=== PATIENT | female | born 1950 | race Caucasian/White ===

== ENCOUNTER 2020-06-01 07:55 | Outpatient (CLI) | payer MEDICARE, OTHER, SELFPAY ==
--- NOTE | ~2020-06-01 | MMUS_ITS ---
EXAMINATION: MM diagnostic rashida BI w mouna, US breast RT limited HISTORY: Palpable lump in the upper inner quadrant of the right breast TECHNIQUE: Craniocaudal, mediolateral, and mediolateral oblique 3-D tomosynthesis images of the right breast were performed and synthetic 2-D images were generated. CAD analysis was submitted and interp reted. High resolution limited right breast ultrasound was performed. COMPARISON: 05/22/2019, 05/14/2018, 05/09/2017 BREAST PARENCHYMAL COMPOSITION: The breasts are almost entirely fatty. FINDINGS: MAMMOGRAPHIC FINDINGS: There is no evidence of suspicious mass, calcification, or architectural distortion to suggest malig maria elena. There has been no suspicious interval change. No mammographic correlate is identified for the reported palpable abnormality of the right breast. ULTRASOUND: There is an approximately 1.3 x 0.7 cm oval, circumscribed, parallel, hyperechoic and isoechoic area at the 1:00 location 10 cm from the nipple corresponding to the palpable abnormality of concern. IMPRESSION: 1. Right breast mass with imaging features suggestive of small hematoma corresponding to the palpable abnormality of concern. 2. Recommend targeted ultrasound in 4-6 weeks to evaluate for interval change/resolution. If persiste nt, ultrasound guided biopsy would be recommended. BI-RADS category 4, suspicious findings. Reviewed, dictated and finalized at location A. IMPRESSION: 1. Right breast mass with imaging features suggestive of small hematoma corresp onding to the palpable abnormality of concern. 2. Recommend targeted ultrasound in 4-6 weeks to evaluate for interval change/r esolution. If persistent, ultrasound guided biopsy would be recommended. BI-RADS category 4, suspicious findings.
== END 2020-06-01 07:56 | disposition home or self-care (01) ==
PROVIDERS: PCP Nurse Practitioner Family; Visit Provider Nurse Practitioner Family
DX: R92.8 Other abnormal and inconclusive findings on diagnostic imaging of breast (principal)
CPT/HCPCS: 76642; 77062; 77066; G0279

== ENCOUNTER 2020-07-06 08:24 | Outpatient (CLI) | payer MEDICARE, OTHER, SELFPAY ==
--- NOTE | ~2020-07-06 | US_ITS ---
US breast RT limited 07/06/2020 09:24 Indication: Palpable right breast lump Procedure: High-resolution ultrasound of the right breast Comparison: Comparison to multiple prior studies sequentially, with oldest reviewed study dated 06/01. Findings: Unchanged complex hyperechoic mass of the right breast at 1:00, 10 cm from the nipple measu ring 17 x 7 x 13 mm. No significant posterior features or internal vascularity. Impression: 1: Stable complex predominantly hyperechoic right breast mass at 1:00, 10 cm from the nipple. BI-RADS CATEGORY 4-SUSPICIOUS ABNORMALITY RECOMMENDATION: Ultrasound-guided right breast biopsy recommended. Reviewed, dictated and finalized at location A. RNATIVE DISPUTE RESOLUTION MEDIATOR Impression: 1: Stable complex predominantly hyperechoic right breast mass at 1:00, 10 cm fr om the nipple. BI-RADS CATEGORY 4-SUSPICIOUS ABNORMALITY RECOMMENDATION: Ultrasound-guided right breast biopsy recommended.
== END 2020-07-06 08:25 | disposition home or self-care (01) ==
PROVIDERS: PCP Nurse Practitioner Family; Visit Provider Nurse Practitioner Family
DX: N63.10 Unspecified lump in the right breast, unspecified quadrant (principal); R92.8 Other abnormal and inconclusive findings on diagnostic imaging of breast
CPT/HCPCS: 76642

== ENCOUNTER → 2020-09-23 10:15 | Outpatient (CLI) | payer MEDICARE, OTHER, SELFPAY ==
--- NOTE | ~2020-09-23 | DEXA_ITS ---
Bone Density Report Name: Negrita Ayon Age: 70 Sex: Female Ethnicity: White Date of : 1950 Indication: osteopenia; postmenopausal Referring Provider: Minerva Lim Study: Bone densitometry was performed. Exam Date: September 23, 2020 Accession number: [id number] Bone Density: Region BMD T-score Z-score Classification AP Spine (L1, L2, L3) 0.842 -1.6 0.6 Osteopenia Femoral Neck (Left) 0.827 -0.2 1.7 Normal Total Hip (Left) 0.964 0.2 1.8 Normal Femoral Neck (Right) 0.748 -0.9 1.0 Normal Total Hip (Right) 0.930 -0.1 1.5 Normal Total Hip Mean 0.947 0.1 1.7 Normal World Health Organization criteria for BMD impression classify patients as: Normal (T-score at or above -1.0), Osteopenia (T-score between -1.0 and -2.5), or Osteoporosis (T-score at or below -2.5). 10-year Fracture Risk(1): Major Osteoporotic Fracture 8.6% Hip Fracture 0.9% Reported Risk Factors: [place] (), Neck BMD=0.748, BMI=32.0 (1) FRAX(R) Version 3.08. Fracture probability calculated for an untreated patient. Fracture probability may be lower if the patient has received treatment. Previous Exams: Region Exam Age BMD T-score BMD Change BMD Change Date g/cm2 vs Baseline vs Previous AP Spine(L1, L2, L3) 09/23/2020 70 0.842 -1.6 0.052* -0.008 06/04/2018 67 0.851 -1.5 0.060* 0.010 04/17/2012 61 0.840 -1.6 0.050* -0.004 04/13/2010 59 0.844 -1.6 0.053* 0.025* 04/10/2009 58 0.819 -1.8 0.028* -0.018 03/19/2008 57 0.837 -1.6 0.047* -0.017 03/16/2007 56 0.854 -1.5 0.064* 0.064* 03/10/2006 55 0.791 -2.1 Total Hip(Left) 09/23/2020 70 0.964 0.2 -0.091* 0.001 06/04/2018 67 0.962 0.2 -0.092* -0.047* 04/17/2012 61 1.009 0.5 -0.045* 0.007 04/13/2010 59 1.002 0.5 -0.053* 0.001 04/10/2009 58 1.001 0.5 -0.054* 0.015 03/19/2008 57 0.986 0.4 -0.069* -0.028* 03/16/2007 56 1.013 0.6 -0.041* -0.041* 03/10/2006 55 1.054 0.9 Total Hip(Right) 09/23/2020 70 0.930 -0.1 -0.088* -0.017 06/04/2018 67 0.947 0.0 -0.071* -0.021 04/17/2012 61 0.967 0.2 -0.051* -0.118* 04/13/2010 59 1.086 1.2 0.068* 0.102* 04/10/2009 58 0.984 0.3 -0.034* 0.026 03/19/2008 57 0.958 0.1 -0.060* -0.072* 03/16/2007 56 1.031 0.7 0.013
== END ==
PROVIDERS: PCP Nurse Practitioner Family; Visit Provider Nurse Practitioner Family
DX: Z78.0 Asymptomatic menopausal state (principal)
CPT/HCPCS: 77080

== ENCOUNTER → 2022-09-27 10:14 | Outpatient (CLI) | payer MEDICARE, OTHER, SELFPAY ==
--- NOTE | ~2022-09-27 | DEXA_ITS ---
Bone Density Report Name: JOSHUA KENNY Age: 72 Sex: Female Ethnicity: White Date of : 1950 Indication: osteopenia; height loss; postmenopausal Referring Provider: Minerva Lim Study: Bone densitometry was performed. Exam Date: September 27, 2022 Accession number: [id number] Bone Density: Region BMD T-score Z-score Classification AP Spine (L1, L2, L3) 0.816 -1.8 0.5 Osteopenia Femoral Neck (Left) 0.783 -0.6 1.4 Normal Total Hip (Left) 0.946 0.0 1.8 Normal Femoral Neck (Right) 0.729 -1.1 1.0 Osteopenia Total Hip (Right) 0.981 0.3 2.1 Normal Total Hip Mean 0.964 0.2 2.0 Normal World Health Organization criteria for BMD impression classify patients as: Normal (T-score at or above -1.0), Osteopenia (T-score between -1.0 and -2.5), or Osteoporosis (T-score at or below -2.5). 10-year Fracture Risk(1): Major Osteoporotic Fracture 9.4% Hip Fracture 1.4% Reported Risk Factors: [place] (), Neck BMD=0.729, BMI=31.4 (1) FRAX(R) Version 3.08. Fracture probability calculated for an untreated patient. Fracture probability may be lower if the patient has received treatment. Previous Exams: Region Exam Age BMD T-score BMD Change BMD Change Date g/cm2 vs Baseline vs Previous AP Spine(L1, L2, L3) 09/27/2022 72 0.816 -1.8 0.026* -0.026* 09/23/2020 70 0.842 -1.6 0.052* -0.008 06/04/2018 67 0.851 -1.5 0.060* 0.010 04/17/2012 61 0.840 -1.6 0.050* -0.004 04/13/2010 59 0.844 -1.6 0.053* 0.025* 04/10/2009 58 0.819 -1.8 0.028* -0.018 03/19/2008 57 0.837 -1.6 0.047* -0.017 03/16/2007 56 0.854 -1.5 0.064* 0.064* 03/10/2006 55 0.791 -2.1 Total Hip(Left) 09/27/2022 72 0.946 0.0 -0.108* -0.017 09/23/2020 70 0.964 0.2 -0.091* 0.001 06/04/2018 67 0.962 0.2 -0.092* -0.047* 04/17/2012 61 1.009 0.5 -0.045* 0.007 04/13/2010 59 1.002 0.5 -0.053* 0.001 04/10/2009 58 1.001 0.5 -0.054* 0.015 03/19/2008 57 0.986 0.4 -0.069* -0.028* 03/16/2007 56 1.013 0.6 -0.041* -0.041* 03/10/2006 55 1.054 0.9 Total Hip(Right) 09/27/2022 72 0.981 0.3 -0.037* 0.052* 09/23/2020 70 0.930 -0.1 -0.088* -0.017 06/04/2018 67 0.947 0.0 -0.071* -0.021 04/17/2012 61 0.967 0.2 -0.051* -0.118* 04/13/2010 59 1.663
== END ==
PROVIDERS: PCP Nurse Practitioner Family; Visit Provider Nurse Practitioner Family
DX: Z78.0 Asymptomatic menopausal state (principal)
CPT/HCPCS: 77080

== ENCOUNTER 2023-03-03 16:57 | Emergency (ER) | payer MEDICARE, OTHER, SELFPAY ==
[2023-03-03 17:10] VITALS: BP 146/74; PULSE 70; RESP 18; TEMP 37; O2SAT 100
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
== END 2023-03-03 17:49 | disposition home or self-care (01) ==
PROVIDERS: Emergency Provider Nurse Practitioner Family; PCP Nurse Practitioner Family
DX: L03.311 Cellulitis of abdominal wall (principal); T21.02XA Burn of unspecified degree of abdominal wall, initial encounter; I10 Essential (primary) hypertension; E78.5 Hyperlipidemia, unspecified; E03.9 Hypothyroidism, unspecified; Z87.891 Personal history of nicotine dependence; T31.0 Burns involving less than 10% of body surface; X11.8XXA Contact with other hot tap-water, initial encounter
CPT/HCPCS: 99213; G0463

== ENCOUNTER 2024-07-22 00:03 | Day surgery (SDC) | payer MEDICARE, OTHER, SELFPAY ==
[2024-07-10 10:21] VITALS: BMI 28.5
[2024-07-22 08:00] VITALS: BP 127/80; PULSE 74; RESP 18; TEMP 36.2; O2SAT 95
[2024-07-22] MEDS: LACTATED RINGERS 1,000 ML 150 ML IV CONT (08:10)
--- NOTE | 2024-07-22 08:10 | P.PNAN_ITS ---
Anes - Initial Pre Proc Eval Procedure: Operation Date: 07/22/24 09:30 Proposed Procedures p Colonoscopy - George Olsen MD Date/Time: 07/22/24 08:10 Surgeon: George Olsen MD Pre Op Diagnosis: fecal abnormalities Patient Data Age: 73 Gender: F Height: 1.63 m Weight: 75.1 kg Last Vital Signs Temp 36.2 C L 07/22/24 08:00 Pulse 74 07/22/24 08:00 Resp 18 07/22/24 08:00 BP 127/80 07/22/24 08:00 Pulse Ox 95 07/22/24 08:00 O2 Del Method Room Air 07/22/24 08:00 Allergies Allergy/AdvReac Type Severity Reaction Status Date / Time azithromycin Allergy Mild thrush Verified 07/22/24 07:59 Sulfa (Sulfonamide Allergy Mild hives Verified 07/22/24 07:59 Antibiotics) sulfanilamide Allergy Mild hives Verified 07/22/24 07:59 Home Medications Medication Instructions Recorded Confirmed Type calcium carbonate 500 mg PO DAILY 11/14/19 07/22/24 History cholecalciferol (vitamin D3) 50 2,000 unit PO DAILY 11/14/19 07/22/24 History mcg (2,000 unit) chewable tablet lutein 20 mg tablet 20 mg PO DAILY 11/14/19 07/22/24 History multivitamin 1 tablet PO DAILY 11/14/19 07/22/24 History vitamin E (dl, acetate) 180 mg 400 unit PO DAILY 11/14/19 07/22/24 History (400 unit) capsule ferrous sulfate 325 mg (65 mg 325 mg PO WEEKLY 05/24/21 07/22/24 History iron) capsule,extended release alprazolam 0.25 mg tablet 0.25 mg PO DAILY PRN anxiety #5 06/06/22 07/22/24 Rx tabs losartan 100 See Rx Instructions .Route 09/28/23 07/22/24 Rx mg-hydrochlorothiazide 12.5 mg .COMPLEX #90 tabs tablet amlodipine 5 mg tablet 5 mg PO DAILY #90 tabs 03/13/24 07/22/24 Rx fluoxetine 20 mg capsule 20 mg PO DAILY #90 caps 04/08/24 07/22/24 Rx levothyroxine 50 mcg tablet 50 mcg PO DAILY #90 tabs 04/08/24 07/22/24 Rx sodium,potassium,mag sulfates 17.5 See Rx Instructions PO .COMPLEX 06/26/24 07/22/24 Rx gram-3.13 gram-1.6 gram oral soln #354 mL (Suprep Bowel Prep Kit) Patient hx anesthesia problems: none Family hx anesthesia problems: none Results Review: All pre-operative results and documents have been reviewed as part of the pre- operative evaluation. [facility] Past Medical History Medical History Anxiety Essential (primary) hypertension H/O fracture of rib (~02/2016) Hyperlipidemia Hypothyroid Osteopenia Dexa - 09/23/20 Surgical History Surgical History History of cataract extraction (~2013) History of toe surgery (~2014) hammer toe repair Family History Family History Other Hypertension Social History Social History Social History: Caffeine- Smoking packs per day: 0.5 Smoking cigarettes per day: 10.0 Smoking status: Former smoker Tobacco type: cigarettes Second hand tobacco smoke exposure: No Alcohol intake: current Alcohol use details: occasionally Substance use: never Substance use type: does not use Lack of Transportation: No Lack of Food: Never True Current Housing: I Have Housing Concerned About Future Housing: No Difficulty Paying Gas/Electric Bills: No Difficulty Paying for Meds: No Currently Unemployed: No Education: High School Diploma/GED Difficulty w/ Childcare or Family Care: No Living arrangements: alone Occupation/Education: retired Gender identity (if verbalized by the patient): Female Spiritual care concerns: No Agree to blood products: Yes Anes - Eval Final PreProcedure Day of Procedure 07/22/24 08:10 Patient weight: overweight Heart: regular rate and rhythm Lungs: clear to auscultation Airway: Mallampati scale class II Neurological: alert and oriented Last oral intake: >/= 8 hours ASA classification: III Emergent: no Anesthetic plan: proceed Anesthesia type and monitoring: general GIVS and standard monitoring Results Review: All pre-operative results and documents have been reviewed as part of the pre- operative evaluation. Informed Consent: The patient's anesthetic plan and its attendant risks and benefits were discussed with the patient/family/POA. Questions were solicited and answers provided to the satisfaction of the patient/family/POA.
--- NOTE | 2024-07-22 09:00 | PM.IMHP ---
H&P: HPI History of Present Illness Date/Time: 07/22/24 09:00 Chief Complaint: Screening colonoscopy Narrative: this is the 2nd colonoscopy for this Patient. she is referred for a finding of positive Cologuard. Her 1st colonoscopy was 12 years ago, reportedly normal. Review of Systems Review of Systems: All systems reviewed & are unremarkable except as noted in HPI and below PMFSH Past Medical History Medical History Anxiety Essential (primary) hypertension H/O fracture of rib (~02/2016) Hyperlipidemia Hypothyroid Osteopenia Dexa - 09/23/20 Surgical History Surgical History History of cataract extraction (~2013) History of toe surgery (~2014) hammer toe repair Family History Family History Other Hypertension Social History Social History Social History: Caffeine- Smoking packs per day: 0.5 Smoking cigarettes per day: 10.0 Smoking status: Former smoker Tobacco type: cigarettes Second hand tobacco smoke exposure: No Alcohol intake: current Alcohol use details: occasionally Substance use: never Substance use type: does not use Lack of Transportation: No Lack of Food: Never True Current Housing: I Have Housing Concerned About Future Housing: No Difficulty Paying Gas/Electric Bills: No Difficulty Paying for Meds: No Currently Unemployed: No Education: High School Diploma/GED Difficulty w/ Childcare or Family Care: No Living arrangements: alone Occupation/Education: retired Gender identity (if verbalized by the patient): Female Spiritual care concerns: No Agree to blood products: Yes Meds Home Medications and Allergies Home Medications Medication Instructions Recorded Confirmed Type calcium carbonate 500 mg PO DAILY 11/14/19 07/22/24 History cholecalciferol (vitamin D3) 50 2,000 unit PO DAILY 11/14/19 07/22/24 History mcg (2,000 unit) chewable tablet lutein 20 mg tablet 20 mg PO DAILY 11/14/19 07/22/24 History multivitamin 1 tablet PO DAILY 11/14/19 07/22/24 History vitamin E (dl, acetate) 180 mg 400 unit PO DAILY 11/14/19 07/22/24 History (400 unit) capsule ferrous sulfate 325 mg (65 mg 325 mg PO WEEKLY 05/24/21 07/22/24 History iron) capsule,extended release alprazolam 0.25 mg tablet 0.25 mg PO DAILY PRN anxiety #5 06/06/22 07/22/24 Rx tabs losartan 100 See Rx Instructions .Route 09/28/23 07/22/24 Rx mg-hydrochlorothiazide 12.5 mg .COMPLEX #90 tabs tablet amlodipine 5 mg tablet 5 mg PO DAILY #90 tabs 03/13/24 07/22/24 Rx fluoxetine 20 mg capsule 20 mg PO DAILY #90 caps 04/08/24 07/22/24 Rx levothyroxine 50 mcg tablet 50 mcg PO DAILY #90 tabs 04/08/24 07/22/24 Rx sodium,potassium,mag sulfates 17.5 See Rx Instructions PO .COMPLEX 06/26/24 07/22/24 Rx gram-3.13 gram-1.6 gram oral soln #354 mL (Suprep Bowel Prep Kit) Allergies Allergy/AdvReac Type Severity Reaction Status Date / Time azithromycin Allergy Mild thrush Verified 07/22/24 07:59 Sulfa (Sulfonamide Allergy Mild hives Verified 07/22/24 07:59 Antibiotics) sulfanilamide Allergy Mild hives Verified 07/22/24 07:59 Vital Signs Vital Signs - 24 hr 07/22/24 08:00 Temperature 97.1 F L Pulse Rate 74 Respiratory Rate 18 Blood Pressure 127/80 Pulse Oximetry 95 Oxygen Delivery Room Air Exam Const: General: cooperative and healthy appearing Resp: Effort & Inspection: normal respiratory effort and able to speak in complete sentences Auscultation: clear to auscultation bilaterally Cardio: Rate: regular rate Rhythm: regular rhythm GI: Inspection: normal to inspection GI Palp: No No hepatosplenomegaly present Auscultation: normal bowel sounds Rectal Exam: deferred Skin: General skin exam: normal color Psych: Appearance: grossly normal Mental Status: mental status grossly normal Assessment and Plan Assessment and plan (1) Positive colorectal cancer screening using Cologuard test: Code(s): R19.5 - Other fecal abnormalities Status: Acute Assessment and Plan: The patient is deemed a good candidate for the procedure. Consent signed. Will proceed.
[2024-07-22 09:29] VITALS: BP 127/66; PULSE 55; RESP 17; O2SAT 100
[2024-07-22 09:39] VITALS: BP 144/76; PULSE 58; RESP 18; O2SAT 100
[2024-07-22 09:49] VITALS: BP 157/80; PULSE 50; RESP 21; O2SAT 100
== END 2024-07-22 09:59 | disposition home or self-care (01) ==
PROVIDERS: PCP Nurse Practitioner Family; Visit Provider Internal Medicine Gastroenterology
PROC: 0DJD8ZZ Inspection of Lower Intestinal Tract, Via Natural or Artificial Opening Endoscopic (ICD-10-PCS; CPT 45378; principal; 2024-07-22 09:30)
DX: R19.5 Other fecal abnormalities (principal); K57.30 Diverticulosis of large intestine without perforation or abscess without bleeding; E78.5 Hyperlipidemia, unspecified; E03.9 Hypothyroidism, unspecified; I10 Essential (primary) hypertension; F41.9 Anxiety disorder, unspecified; Z87.891 Personal history of nicotine dependence
CPT/HCPCS: 45378; J2704; J7120

== ENCOUNTER 2024-10-14 10:28 | Outpatient (CLI) | payer MEDICARE, OTHER, SELFPAY ==
--- NOTE | ~2024-10-14 | DEXA_ITS ---
Bone Density Report Name: JOSHUA KENNY Age: 74 Sex: Female Ethnicity: White Date of : 1950 Indication: postmenopausal; screening for osteoporosis; height loss; Referring Provider: MERLINE HAWKINS Study: Bone densitometry was performed. Exam Date: October 14, 2024 Accession number: [id number] Bone Density: Region BMD T-score Z-score Classification AP Spine(L1, L2, L3) 0.846 -1.6 0.8 Osteopenia Femoral Neck (Left) 0.730 -1.1 1.1 Osteopenia Total Hip (Left) 0.957 0.1 2.0 Normal Femoral Neck (Right) 0.702 -1.3 0.8 Osteopenia Total Hip (Right) 0.907 -0.3 1.6 Normal Femoral Neck Mean 0.716 -1.2 0.9 Osteopenia Total Hip Mean 0.932 -0.1 1.8 Normal World Health Organization criteria for BMD impression classify patients as: Normal (T-score at or above -1.0), Osteopenia (T-score between -1.0 and -2.5), or Osteoporosis (T-score at or below -2.5). 10-year Fracture Risk(1): Major Osteoporotic Fracture 11% Hip Fracture 2.1% Reported Risk Factors: [place] (), Neck BMD=0.702, BMI=27.8 (1) FRAX(R) Version 3.08. Fracture probability calculated for an untreated patient. Fracture probability may be lower if the patient has received treatment. Clinical Information Provided by Patient: Has used the following medications: Vitamin D, Calcium Patient maximum height was 66 Menopause Age: 48 No regular weight bearing exercise Onset of menses at age 10 Number of children 1 Impression: The patient has low bone mass, based on the Total Spine T-score. Discussion: BONE DENSITY IS LOW AT ONE OR MORE SKELETAL SITES. This patient's lowest T-score is low at one or more skeletal sites. It meets the World Health Organization's (WHO) criteria for ?low bone mass? (T-score between -1.0 and -2.5). The patient's 10-year risk of fracture as calculated by FRAX is less than the threshold where pharmacological therapy is recommended by the National Osteoporosis Foundation (NOF). However, all treatment decisions require clinical judgment and consideration of individual patient factors, including patient preferences, comorbidities, previous drug use, risk factors not captured in the FRAX model (e.g., frailty, falls, vitamin D deficiency, increased bone turnover, interval significant decline in bone density) and possible under or overestimation of fracture risk by FRAX. The patient should follow a healthful lifestyle (good nutrition with adequate calcium and vitamin D, and appropriate weight-bearing exercise). Follow-Up: Consider repeating this study in 2 to 3 years to reassess this patient's status, or sooner if there is some new clinical indication. Reported by: JANN on 10/14/2024 10:49:00 AM. Reviewed, dictated and finalized at location A.
--- OUTSIDE RECORDS SUMMARY | 2024-10-14 11:22 | XMS_ITS | Clinical Summary ---
Author Organization [facility] Address [address] [place] [address] Care Team Providers Care Seating And Mobility Technologist Name Role Phone Unavailable Primary Care Provider Unavailabl e Source Comments [facility],non-owned Affiliates and Associated Physician Practices is amultiple site organization consisting of ambulatory clinics and hospital sitesin [place], [place], [place] and [place]. This disclosure is being madepursuant to the Care Everywhere program and may not contain all information available regarding this patient. Last updated 18.[facility] [employer] Social History Tobacco Use Types Packs/Day Years Used Date Smoking Tobacco: Never Assessed Sex and Gender Information Value Date Recorded Sex Assigned at Not on file Gender Identity Not on file Sexual Orientation Not on file Plan of Treatment Health Maintenance Due Date Last Done Comments BONE DENSITY TESTING 1950 MEDICARE AWV 12 MONTHS 1950 HEPATITIS C SCREENING 08/16/1966 DTAP/TDAP/TD VACCINES (1 - Tdap) 1967 PNEUMOCOCCAL VACCINE 50+ (1 of 1 - PCV) 1998 ZOSTER VACCINE (1 of 2) 1998 Respiratory Syncytial Virus (RSV) Vaccine Pt: or over 60 yrs (1 - 1-dose 75+ series) 2023 COVID-19 VACCINE ( - 2023-2 5 season) 2024 INFLUENZA VACCINE (#1) 2024 DEPRESSION SCREENING 09/04/2024 HEPATITIS B VACCINE Aged Out No longe r eligible based on patient's age to complete this topic HIB VACCINE Aged Out No longer eligi ble based on patient's age to complete this topic HPV VACCINE Aged Out No longer eligi ble based on patient's age to complete this topic MENINGOCOCCAL (Group B) VACCINE Aged Out No longer eligible based on patient's age to complete this topic MENINGOCOCCAL VACCINE Aged Out No malgorzata flavia eligible based on patient's age to complete this topic
--- OUTSIDE RECORDS SUMMARY | 2024-10-14 11:22 | XMS_ITS | Encounter Summary ---
Author Organization [facility] Address [address] [place] [address] Phone Care Team Providers Care Salesperson Automobiles Name Role Phone Minerva Lim APRN, AUTOMOTIVE GENERATOR REPAIRER Primary Care Provider U navailable Reason for Referral * Radiology Services (Routine) - Closed Specialty Diagnoses / Procedures Referred By Asia t Referred To Contact Radiology Diagnoses Abnormal mammogram Procedures [facility] BREAST LIMITED RT Warner Morataya MD [address] [id number] Phone: tel: fax: Referral ID Status Reason Start Date Expiration Date Visits Re quested Visits Authorized [id number] Closed 05/14/2024 1 1 * Radiology Services (Routine) - Closed Specialty Diagnoses / Procedures Referred By Asia ferreira Referred To Contact Radiology Diagnoses Abnormal mammogram Procedures [facility] DIAG RIGHT UNILATERAL DIGITAL W CAD W Warner Mcelroy MD [address] [address] Phone: tel: fax: Referral ID Status Reason Start Date Expiration Date Visits Re quested Visits Authorized [id number] Closed 05/14/2024 1 1 Encounter Details Date Type Department Care Team (Late st Contact Info) Description 05/14/2024 Transcribe Orders [facility] Mammography [address] [place] [address] Warner Morataya MD [address] [place] [phone] Abnormal mammogram (Primary Dx) Social History Tobacco Use Types Packs/Day Years Used Date Smoking Tobacco: Former Cigarettes Q uit: 1997 Smokeless Tobacco: Never Alcohol Use Standard Drinks/Week Comments Yes 0 (1 standard drink = 0.6 oz pur e alcohol) occassionally Comments No Sex and Gender Information Value Date Recorded Sex Assigned at Not on file Legal Sex Female 2:32 PM CDT Gender Identity Not on file Sexual Orientation Not on file documented as of this encounter Plan of Treatment Not on file documented as of this encounter Results * CA[facility] US BREAST LIMITED RT (07/01/2024 10:33 AM CDT) Anatomical Region Laterality Modality breast Right Ultrasound 07/01/2024 9:41 AM CDT Narrative 07/03/2024 8:41 AM CDT - [facility] DIAG RIGHT UNILATERAL DIGITAL W CAD W [facility] - CAITLIN US BREAST LIMITED RT UNILATERAL RIGHT DIGITAL DIAGNOSTIC MAMMOGRAM 3D/2D WITH CAD WITH MEDIOLATERAL OBLIQUE CRANIOCAUDAL AND RIGHT ULTRASOUND: 07/01/2024 The study was acquired using digital technology and interpreted from soft copy. Current study was also evaluated with ICAD version 7.2. 2D digital mammographic views, as well as 3D digital tomosynthesis were performed in the CC and MLO projections. CLINICAL: Diagnostic study. Patient returns for a 6 month follow-up right breast. No personal history of cancer. Paternal aunt had breast cancer. COMPARISONS: Comparison is made to exams dated: 07/19/2023, 12/28/2023, and [facility] [facility]. BREAST TISSUE:There are scattered areas of fibroglandular density. FINDINGS: BILATERAL DIAGNOSTIC MAMMOGRAM: There is a biopsy clip in the right breast. No significant masses or calcifications are seen in either breast on the mammogram. Further evaluation was obtained with sonography. TARGETED RIGHT BREAST ULTRASOUND: At the 1 o'clock position of the right breast, 12 cm from the nipple, an oval heterogeneous focus is again seen. This was previously biopsied. This measures 1.8 x 1.7 x 0.8 cm, previously 2.0 x 1.8 x 1.0 cm. Previous biopsy showed fat necrosis. This will continue to be classified as probably benign. IMPRESSION: OVERALL STUDY BIRADS: CATEGORY 3: PROBABLY BENIGN Lesion in the right breast continue to be classified as probably benign. A follow-up mammogram and an ultrasound in 6 months are recommended to demonstrate stability. The results and recommendations were discussed with the patient. Electronically signed by: Ary Singh M.D. ll/:07/02/2024 15:13:25 Survey Interviewer(s): Violet Lee, RT(R)(M), [facility]; JAMIE Ramirez, [facility] letter sent: Birad 3 Followup Reading location: [facility] OVERALL STUDY BIRADS: Category 3: Probably Benign Procedure Note Ary Singh MD - 07/03/2024 - [facility] DIAG RIGHT UNILATERAL DIGITAL W CAD W [place] - CAITLIN US BREAST LIMITED RT UNILATERAL RIGHT DIGITAL DIAGNOSTIC MAMMOGRAM 3D/2D WITH CAD WITH MEDIOLATERAL OBLIQUE CRANIOCAUDAL AND RIGHT ULTRASOUND: 07/01/2024 The study was acquired using digital technology and interpreted from soft copy. Current study was also evaluated with ICAD version 7.2. 2D digital mammographic views, as well as 3D digital tomosynthesis were performed in the CC and MLO projections. CLINICAL: Diagnostic study. Patient returns for a 6 month follow-up right breast. No personal history of cancer. Paternal aunt had breast cancer. COMPARISONS: Comparison is made to exams dated: 07/19/2023, 12/28/2023, and 06/27/2022 [facility]. BREAST TISSUE:There are scattered areas of fibroglandular density. FINDINGS: BILATERAL DIAGNOSTIC MAMMOGRAM: There is a biopsy clip in the right breast. No significant masses or calcifications are seen in either breast on the mammogram. Further evaluation was obtained with sonography. TARGETED RIGHT BREAST ULTRASOUND: At the 1 o'clock position of the right breast, 12 cm from the nipple, an oval heterogeneous focus is again seen. This was previously biopsied. This measures 1.8 x 1.7 x 0.8 cm, previously 2.0 x 1.8 x 1.0 cm. Previous biopsy showed fat necrosis. This will continue to be classified as probably benign. IMPRESSION: OVERALL STUDY BIRADS: CATEGORY 3: PROBABLY BENIGN Lesion in the right breast continue to be classified as probably benign. A follow-up mammogram and an ultrasound in 6 months are recommended to demonstrate stability. The results and recommendations were discussed with the patient. Electronically signed by: Ary Singh M.D. ll/:07/02/2024 15:13:25 Survey Interviewer(s): Violet Lee, RT(R)(M), [facility]; JAMIE Ramirez, [facility] letter sent: Birad 3 Followup Reading location: [facility] OVERALL STUDY BIRADS: Category 3: Probably Benign us Warner Morataya MD IMG MAMMO ORDERABLES Final Result * [facility] DIAG RIGHT UNILATERAL DIGITAL W CAD W [place] (07/01/2024 10:07 AM CDT) Anatomical Region Laterality Modality breast Right Mammography 07/01/2024 9:41 AM CDT Narrative 07/03/2024 8:41 AM CDT - [facility] DIAG RIGHT UNILATERAL DIGITAL W CAD W [place] - CAITLIN US BREAST LIMITED RT UNILATERAL RIGHT DIGITAL DIAGNOSTIC MAMMOGRAM 3D/2D WITH CAD WITH MEDIOLATERAL OBLIQUE CRANIOCAUDAL AND RIGHT ULTRASOUND: 07/01/2024 The study was acquired using digital technology and interpreted from soft copy. Current study was also evaluated with ICAD version 7.2. 2D digital mammographic views, as well as 3D digital tomosynthesis were performed in the CC and MLO projections. CLINICAL: Diagnostic study. Patient returns for a 6 month follow-up right breast. No personal history of cancer. Paternal aunt had breast cancer. COMPARISONS: Comparison is made to exams dated: 07/19/2023, 12/28/2023, and 06/27/2022 [facility]. BREAST TISSUE:There are scattered areas of fibroglandular density. FINDINGS: BILATERAL DIAGNOSTIC MAMMOGRAM: There is a biopsy clip in the right breast. No significant masses or calcifications are seen in either breast on the mammogram. Further evaluation was obtained with sonography. TARGETED RIGHT BREAST ULTRASOUND: At the 1 o'clock position of the right breast, 12 cm from the nipple, an oval heterogeneous focus is again seen. This was previously biopsied. This measures 1.8 x 1.7 x 0.8 cm, previously 2.0 x 1.8 x 1.0 cm. Previous biopsy showed fat necrosis. This will continue to be classified as probably benign. IMPRESSION: OVERALL STUDY BIRADS: CATEGORY 3: PROBABLY BENIGN Lesion in the right breast continue to be classified as probably benign. A follow-up mammogram and an ultrasound in 6 months are recommended to demonstrate stability. The results and recommendations were discussed with the patient. Electronically signed by: Ary Singh M.D. ll/:07/02/2024 15:13:25 Survey Interviewer(s): Violet Lee, RT(R)(M), [facility]; JAMIE Ramirez, [facility] letter sent: Birad 3 Followup Reading location: [facility] OVERALL STUDY BIRADS: Category 3: Probably Benign Procedure Note Ary Singh MD - 07/03/2024 - [facility] DIAG RIGHT UNILATERAL DIGITAL W CAD W [place] - CA[facility]LIN US BREAST LIMITED RT UNILATERAL RIGHT DIGITAL DIAGNOSTIC MAMMOGRAM 3D/2D WITH CAD WITH MEDIOLATERAL OBLIQUE CRANIOCAUDAL AND RIGHT ULTRASOUND: 07/01/2024 The study was acquired using digital technology and interpreted from soft copy. Current study was also evaluated with ICAD version 7.2. 2D digital mammographic views, as well as 3D digital tomosynthesis were performed in the CC and MLO projections. CLINICAL: Diagnostic study. Patient returns for a 6 month follow-up right breast. No personal history of cancer. Paternal aunt had breast cancer. COMPARISONS: Comparison is made to exams dated: 07/19/2023, 12/28/2023, and 06/27/2022 [facility]. BREAST TISSUE:There are scattered areas of fibroglandular density. FINDINGS: BILATERAL DIAGNOSTIC MAMMOGRAM: There is a biopsy clip in the right breast. No significant masses or calcifications are seen in either breast on the mammogram. Further evaluation was obtained with sonography. TARGETED RIGHT BREAST ULTRASOUND: At the 1 o'clock position of the right breast, 12 cm from the nipple, an oval heterogeneous focus is again seen. This was previously biopsied. This measures 1.8 x 1.7 x 0.8 cm, previously 2.0 x 1.8 x 1.0 cm. Previous biopsy showed fat necrosis. This will continue to be classified as probably benign. IMPRESSION: OVERALL STUDY BIRADS: CATEGORY 3: PROBABLY BENIGN Lesion in the right breast continue to be classified as probably benign. A follow-up mammogram and an ultrasound in 6 months are recommended to demonstrate stability. The results and recommendations were discussed with the patient. Electronically signed by: Ary Singh M.D. ll/:07/02/2024 15:13:25 Survey Interviewer(s): RT Katelin(R)(M), [facility]; Park Porras RDMS OBGYN, [facility] letter sent: Birad 3 Followup Reading location: [facility] OVERALL STUDY BIRADS: Category 3: Probably Benign Warner Morataya MD IMG MAMMO ORDERABLES Final Result documented in this encounter Visit Diagnoses Diagnosis Abnormal mammogram- Primary Abnormal mammogram, unspecified Abnormal mammogram Abnormal mammogram, unspecified Abnormal mammogram Abnormal mammogram, unspecified documented in this encounter Care Teams Salesperson Automobiles Relationship Specialty Start Date End Date Minerva Lim, PRODUCT DESIGN MANAGER, AUTOMOTIVE GENERATOR REPAIRER PCP - General Certified Nurse Practitioner 07/10/20 documented as of this encounter
--- OUTSIDE RECORDS SUMMARY | 2024-10-14 11:22 | XMS_ITS | Patient Health Summary ---
Author Organization [facility] Address [address] [place] [address] Care Team Providers Care Furniture Inspector Name Role Phone Unavailable Primary Care Provider Unavailabl e Note from [facility],non-owned Affiliates and Associated Physician Practices is amultiple site organization consisting of ambulatory clinics and hospital sitesin [place], [place], [place] and [place]. This disclosure is being madepursuant to the Care Everywhere program and may not contain all information available regarding this patient. Last updated 18.[facility] Social History Tobacco Use Types Packs/Day Years Used Date Smoking Tobacco: Never Assessed Sex and Gender Information Value Date Recorded Sex Assigned at Not on file Gender Identity Not on file Sexual Orientation Not on file
--- OUTSIDE RECORDS SUMMARY | 2024-10-14 11:22 | XMS_ITS | Clinical Summary ---
Author Organization [facility] Address [address], [address] [phone] Phone Care Team Providers Care Geological Drafter Name Role Phone Minerva Lim APRN, WOOD PATTERNMAKER Primary Care Provider U navailable Allergies Active Allergy Reactions Criticality Noted Date Comments Sulfa Antibiotics Hives 07/10/2020 Medications losartan-hydroch lorothiazide (HYZAAR) 100-12.5 MG Tablet TAKE 1 TABLET BY MOUTH ONCE DAILY 05/01/2020 Active levothyroxine (SYNTHROID) 50 MCG Tablet TAKE 1 TABLET BY MOUTH ONCE DAILY 05/25/2020 Active ALPRAZolam (XANAX) 0.5 MG Tablet Take 0.5 mg by mouth daily as needed. Active FLUoxetine (PROzac) 20 MG Capsule 05/25/2021 Active amLODIPine (NORVASC) 5 MG Tablet 07/01/2021 Active Active Problems Problem Noted Date Diagnosed Date Breast mass, right 07/09/2020 Family History Medical History Relation Name Comments Cancer Brother Hypertension Father Heart Attack Maternal Grandmother Cancer Mother Relation Name Status Comments Brother Father Maternal Grandfather Maternal Grandmother Mother Paternal Grandfather Paternal Grandmother Social History Tobacco Use Types Packs/Day Years [...] on file Sexual Orientation Not on file Last Filed Vital Signs Vital Sign Reading Time Taken Comments Blood Pressure 142/86 09/14/2021 8:49 AM WIRE PHOTO OPERATOR NEWS Pulse 85 09/14/2021 8:49 AM WIRE PHOTO OPERATOR NEWS Temperature 36.9 C (98.5 F) 09/14/2021 8:49 AM WIRE PHOTO OPERATOR NEWS Respiratory Rate 18 09/14/2021 8:49 AM WIRE PHOTO OPERATOR NEWS Oxygen Saturation 100% 09/14/2021 8:49 AM WIRE PHOTO OPERATOR NEWS Inhaled Oxygen Concentration - - Weight - - Height - - Body Mass Index - - Plan of Treatment Health Maintenance Due Date Last Done Comments DEXA Bone Density 1948 Hepatitis C Virus (HCV) Screening 1950 Colonoscopy 1993 Colorectal Cancer Screening 1993 Cologuard 1998 Immunochemical Fecal Occult Blood 1998 Zoster Immunization (2 of 3) 07/09/2017 05/14/2017 Respiratory Syncytial Virus (RSV) Immunization (Adult) (1 - 1-dose 75+ series) 2023 Influenza Immunization (#1) 2024 SARS-COV-2 Immunization (2023- season) 2024 DTaP/Tdap/Td Immunization Discontinued 06/24/2016 TdaP Immunization Completed 06/24/2016 Pneumococcal Immunization (50+ years) Completed 06/25/2018, 05/14/2017 Pneumococcal Immunization Combined Discontinued 06/25/2018, 05/14/2017 Mammogram Discontinued 12/28/2023, 07/05, 06/27/2022, Additional history exists Hepatitis B Immunization Aged Out No longer eligible based on patient's age to complete this topic Meningococcal Immunization (ACWY) Aged Out No longer eligible based on patient's age to complete this topic Rotavirus Immunization Aged Out No lo nger eligible based on patient's age to complete this topic Procedures Procedure Name Priority Date/Time Associated Diagnosis Comments [facility] DIAG BILATERAL DIGITAL W CAD W [place] Routine 12/28/2023 1:46 PM CDT Bilateral breast lump Other signs and symptoms in breast from Last 3 Months or Most Recently Relevant to Health Maintenance Results * [facility]LIN DIAG BILATERAL DIGITAL W CAD W [place] (12/28/2023 1:46 PM CDT) Anatomical Region Laterality Modality breast Bilateral Mammography 12/28/2023 1:00 PM CDT Narrative 12/28/2023 3:10 PM CDT - [facility] DIAG BILATERAL DIGITAL W CAD W [place] - CAITLIN US BREAST LIMITED REJI BILATERAL DIGITAL DIAGNOSTIC MAMMOGRAM 3D/2D WITH CAD WITH MEDIOLATERAL OBLIQUE CRANIOCAUDAL AND BILATERAL ULTRASOUND: 12/28/2023 The study was acquired using digital technology and interpreted from soft copy. Current study was also evaluated with ICAD version 7.2. 2D digital mammographic views, as well as 3D digital tomosynthesis were performed in the CC and MLO projections. CLINICAL: Diagnostic study. Right breast lump near biopsy site; patient says this is new. Left breast lump near axilla for 1 month. No personal history of cancer. Paternal aunt had breast cancer. COMPARISONS: Comparison is made to exams dated: 06/27/2022, 07/19/2023, and 06/03/2021 [facility]. BREAST TISSUE:There are scattered fibroglandular densities in both breasts. FINDINGS: There is a biopsy clip in the right breast. This is in the region of the palpable area of concern at the 1 o'clock position of the right breast posteriorly. No significant masses or calcifications are seen in either breast on the mammogram. No lesions are seen underlying the palpable area of concern in the left axilla. Further evaluation was obtained with sonography. TARGETED BILATERAL BREAST ULTRASOUND: At the palpable area of concern at the 1 o'clock position of the right breast, 12 cm from the nipple, an oval heterogeneous focus is again seen. This was previously biopsied. Currently, this measures 2.0 x 1.8 x 1.0 cm. On 07/06/2020, it measured 1.7 x 1.3 x 0.7 cm. Pathology was consistent with fat necrosis. At the palpable area of concern in the left axilla, small benign-appearing lymph nodes are seen. IMPRESSION: OVERALL STUDY BIRADS: 3 PROBABLY BENIGN The palpable area of concern at the 1 o'clock position of the right breast corresponds to the previously biopsied lesion which was consistent with fat necrosis. This lesion has increased in size. A surgical consultation may be considered for possible excision. Otherwise, a six-month follow-up right diagnostic mammogram and ultrasound are recommended. The area of concern in the left breast corresponds to benign lymph nodes. The results and recommendations were discussed with the patient. Electronically signed by: Ary Singh M.D. ll/:12/28/2023 14:37:51 Heating Equipment Installer(s): Violet Lee, RT(R)(M), [facility]; Park Porras RDMS OBGYMarlene, [facility] letter sent: Birad 3 Followup Reading location: [facility] OVERALL STUDY BIRADS: 3 Probably benign Procedure Note Ary Singh MD - 12/28/2023 - CAITLIN DIAG BILATERAL DIGITAL W CAD W [place] - CAITLIN US BREAST LIMITED REJI BILATERAL DIGITAL DIAGNOSTIC MAMMOGRAM 3D/2D WITH CAD WITH MEDIOLATERAL OBLIQUE CRANIOCAUDAL AND BILATERAL ULTRASOUND: 12/28/2023 The study was acquired using digital technology and interpreted from soft copy. Current study was also evaluated with ICAD version 7.2. 2D digital mammographic views, as well as 3D digital tomosynthesis were performed in the CC and MLO projections. CLINICAL: Diagnostic study. Right breast lump near biopsy site; patient says this is new. Left breast lump near axilla for 1 month. No personal history of cancer. Paternal aunt had breast cancer. COMPARISONS: Comparison is made to exams dated: 06/27/2022, 07/19/2023, and 06/03/2021 [facility]. BREAST TISSUE:There are scattered fibroglandular densities in both breasts. FINDINGS: There is a biopsy clip in the right breast. This is in the region of the palpable area of concern at the 1 o'clock position of the right breast posteriorly. No significant masses or calcifications are seen in either breast on the mammogram. No lesions are seen underlying the palpable area of concern in the left axilla. Further evaluation was obtained with sonography. TARGETED BILATERAL BREAST ULTRASOUND: At the palpable area of concern at the 1 o'clock position of the right breast, 12 cm from the nipple, an oval heterogeneous focus is again seen. This was previously biopsied. Currently, this measures 2.0 x 1.8 x 1.0 cm. On 07/06/2020, it measured 1.7 x 1.3 x 0.7 cm. Pathology was consistent with fat necrosis. At the palpable area of concern in the left axilla, small benign-appearing lymph nodes are seen. IMPRESSION: OVERALL STUDY BIRADS: 3 PROBABLY BENIGN The palpable area of concern at the 1 o'clock position of the right breast corresponds to the previously biopsied lesion which was consistent with fat necrosis. This lesion has increased in size. A surgical consultation may be considered for possible excision. Otherwise, a six-month follow-up right diagnostic mammogram and ultrasound are recommended. The area of concern in the left breast corresponds to benign lymph nodes. The results and recommendations were discussed with the patient. Electronically signed by: Ary Singh M.D. ll/:12/28/2023 14:37:51 Heating Equipment Installer(s): RT Katelin(R)(M), [facility]; JAMIE Ramirez, [facility] letter sent: Brandon 3 Followup Reading location: [facility] OVERALL STUDY BIRADS: 3 Probably benign us Genet Cunningham APRN, CASIMIRO IMG MAMMO ORDERABLES Fi nal Result from Last 3 Months or Most Recently Relevant to Health Maintenance Insurance MEDICARE [employer] MEDICARE SUP Care Teams Geological Drafter Relationship Specialty Start Date End Date Minerva Lim APRN, CASIMIRO PCP - General Certified Nurse Practitioner 07/10/20
--- OUTSIDE RECORDS SUMMARY | 2024-10-14 11:22 | XMS_ITS | Encounter Summary ---
Author Organization [facility] Address [address] [place] [address] Phone Care Team Providers Care Strategic Account Manager Name Role Phone Minerva Lim APRN, CNP Primary Care Provider U heron Encounter Details Date Type Department Care Team (Latest Contact Info) Description 04/30/2024 [facility] [address] [place] [phone] Genet Cunningham APRN, DENTAL ASSISTANT INSTRUCTOR [address] [place] [address] Abnormal mammogram (Primary Dx) Social History Tobacco Use Types Packs/Day Years Used Date Smoking Tobacco: Former Cigarettes Q uit: 1998 Smokeless Tobacco: Never Alcohol Use Standard Drinks/Week [...] on file documented as of this encounter Visit Diagnoses Diagnosis Abnormal mammogram- Primary Abnormal mammogram, unspecified documented in this encounter Care Teams Strategic Account Manager Relationship Specialty Start Date End Date Minerav Lim APRN, CNP PCP - General Certified Nurse Practitioner 07/10/20 documented as of this encounter
--- OUTSIDE RECORDS SUMMARY | 2024-10-14 11:22 | XMS_ITS | Referral Summary ---
Author Organization [facility] Address [address] [place] [address] Care Team Providers Care Truck Engine Assembler Name Role Phone Unavailable Primary Care Provider Unavailabl e Source Comments [facility],non-[facility] Affiliates and Associated Physician Practices is amultiple site organization consisting of ambulatory clinics and hospital sitesin [place], [place], [place] and [place]. This disclosure is being madepursuant to the Care Everywhere program and may not contain all information available regarding this patient. Last updated 18.[facility] Social History Tobacco Use Types Packs/Day Years Used Date Smoking Tobacco: Never Assessed Sex and Gender Information Value Date Recorded Sex Assigned at Not on file Gender Identity Not on file Sexual Orientation Not on file Plan of Treatment Not on file Administered Medications
== END 2024-10-14 10:29 | disposition home or self-care (01) ==
LOC: CHSIMG 10:31
PROVIDERS: PCP Nurse Practitioner Family; Visit Provider Nurse Practitioner Family
DX: Z78.0 Asymptomatic menopausal state (principal); M85.89 Other specified disorders of bone density and structure, multiple sites
CPT/HCPCS: 77080

== ENCOUNTER 2025-04-04 21:46 | Emergency (ER) | payer MEDICARE, OTHER, SELFPAY ==
[2025-04-04 21:47] VITALS: BP 156/67; PULSE 68; RESP 18; TEMP 36.8; O2SAT 98
--- OUTSIDE RECORDS SUMMARY | 2025-04-04 21:48 | XMS_ITS | Encounter Summary ---
Author Organization [facility] Address [address] [place] [address] Phone Care Team Providers Care Master Coastwise Yacht Name Role Phone Minerva Lim APRN, CASIMIRO Primary Care Provider + Reason for Referral * Radiology Services (Routine) - Closed Specialty Diagnoses / Procedures Referred By Contac t Referred To Contact Radiology Diagnoses Abnormal mammogram Procedures [facility] BREAST LIMITED RT Warner Morataya MD [address] [address] Phone: tel: fax: Referral ID Status Reason Start Date Expiration Date Visits Re quested Visits Authorized [id number] Closed 05/14/2024 1 1 * Radiology Services (Routine) - Closed Specialty Diagnoses / Procedures Referred By Contac t Referred To Contact Radiology Diagnoses Abnormal mammogram Procedures CAITLIN DIAG RIGHT UNILATERAL DIGITAL W CAD W Warner Mcelroy MD [address] [address] Phone: tel: fax: Referral ID Status Reason Start Date Expiration Date Visits Re quested Visits Authorized [id number] Closed 05/14/2024 1 1 Encounter Details Date Type Department Care Team (Late st Contact Info) Description 05/14/2024 Transcribe Orders [facility] Mammography [address] [place] [phone] Warner Morataya MD [address] [phone] Abnormal mammogram (Primary Dx) Social History Tobacco [...] to exams dated: 07/19/2023, 12/28/2023, and [facility] BREAST TISSUE:There are scattered areas of fibroglandular [...] signed by: Ary Singh M.D. ll/:07/02/2024 15:13:25 Aircraft Hydraulic Equipment Mechanic(s): Violet Lee, RT(R)(M), [facility]; JAMIE Ramirez, [facility] letter sent: Birad 3 Followup Reading location: [facility] OVERALL STUDY BIRADS: Category 3: Probably Benign [...] to exams dated: 07/19/2023, 12/28/2023, and 06/27/2022 [facility]. BREAST TISSUE:There are scattered areas of fibroglandular [...] signed by: Ary Singh M.D. ll/:07/02/2024 15:13:25 Aircraft Hydraulic Equipment Mechanic(s): Violet Lee, RT(R)(M), [facility]; JAMIE Ramirez, [facility] letter sent: Birad 3 Followup Reading location: [facility] OVERALL STUDY BIRADS: Category 3: Probably Benign [...] to exams dated: 07/19/2023, 12/28/2023, and 06/27/2022 [facility]. BREAST TISSUE:There are scattered areas of fibroglandular [...] signed by: Ary Singh M.D. ll/:07/02/2024 15:13:25 Aircraft Hydraulic Equipment Mechanic(s): RT Katelin(R)(M), [facility]; JAMIE Ramirez, [facility] letter sent: Birad 3 Followup Reading location: [facility] OVERALL STUDY BIRADS: Category 3: Probably Benign [...] to exams dated: 07/19/2023, 12/28/2023, and 06/27/2022 [facility]. BREAST TISSUE:There are scattered areas of fibroglandular [...] signed by: Ary Singh M.D. ll/:07/02/2024 15:13:25 Aircraft Hydraulic Equipment Mechanic(s): Violet Lee RT(R)(M), [facility]; Park Porras RDMS OBCARLOS, [facility] letter sent: Birad 3 Followup Reading location: [facility] OVERALL STUDY BIRADS: Category 3: Probably Benign Warner Morataya MD IMG MAMMO ORDERABLES Final Result documented in this encounter Visit Diagnoses Diagnosis Abnormal mammogram- Primary Abnormal mammogram, unspecified Abnormal mammogram Abnormal mammogram, unspecified Abnormal mammogram Abnormal mammogram, unspecified documented in this encounter Care Teams Master Coastwise Yacht Relationship Specialty Start Date End Date Minerva Lim, EDEN, CASIMIRO PCP - General Certified Nurse Practitioner 07/10/20 documented as of this encounter
--- OUTSIDE RECORDS SUMMARY | 2025-04-04 21:48 | XMS_ITS | Clinical Summary ---
Author Organization [facility] Address [address], [address] [address] Phone Care Team Providers Care Commercial Real Estate Broker Name Role Phone Minerva Lim APRN, [place] SA[facility] Primary Care Provider + Allergies Active Allergy Reactions Criticality Noted Date [...] Comments Blood Pressure 142/86 09/14/2021 8:49 AM SHIPPING WEIGHER Pulse 85 09/14/2021 8:49 AM SHIPPING WEIGHER Temperature 36.9 C (98.5 F) 09/14/2021 8:49 AM SHIPPING WEIGHER Respiratory Rate 18 09/14/2021 8:49 AM SHIPPING WEIGHER Oxygen Saturation 100% 09/14/2021 8:49 AM SHIPPING WEIGHER Inhaled Oxygen Concentration - - Weight - - Height - - Body Mass Index - - Plan of Treatment Health Maintenance Due Date Last Done Comments DEXA Bone Density 1950 Hepatitis C Virus (HCV) Screening 1950 Zoster Immunization (2 of 3) 07/09/2017 05/14/2017 Respiratory Syncytial Virus (RSV) Immunization (Adult) (1 - 1-dose 75+ series) 2023 SARS-COV-2 Immunization (2023- season) 2024 Influenza Immunization (#1) 2025 06/25/2018 DTaP/Tdap/Td Immunization Discontinued 06/24/2016 TdaP Immunization Completed 06/24/2016 Pneumococcal Immunization (50+ years) Completed 06/25/2018, 05/14/2017 Pneumococcal Immunization Combined Discontinued 06/25/2018, 05/14/2017 Mammogram Discontinued 12/31/2024, 12/04, 07/19/2023, Additional history exists Hepatitis B Immunization Aged Out No longer eligible based on patient's age to complete this topic Human Papillomavirus (HPV) Immunization Aged Out No longer eligible based on patient's age to complete this topic Meningococcal Immunization (ACWY) Aged Out No longer eligible based on patient's age to complete this topic Rotavirus Immunization Aged Out No lo nger eligible based on patient's age to complete this topic Procedures Procedure Name Priority Date/Time Associated Diagnosis Comments CAITLIN DIAG BILATERAL DIGITAL W CAD W [place] Routine 12/31/2024 10:10 AM CDT Mass of right breast, unspecified quadrant Other specified disorders of breast from Last 3 Months or Most Recently Relevant to Health Maintenance Results * CAITLIN DIAG BILATERAL DIGITAL W CAD W [place] (12/31/2024 10:10 AM CDT) Anatomical Region Laterality Modality breast Bilateral Mammography 12/31/2024 9:35 AM CDT Narrative 12/31/2024 12:52 PM CDT - [facility] DIAG BILATERAL DIGITAL W CAD W [place] - CAITLIN US BREAST LIMITED RT BILATERAL DIGITAL DIAGNOSTIC MAMMOGRAM 3D/2D WITH CAD WITH MEDIOLATERAL OBLIQUE CRANIOCAUDAL AND RIGHT ULTRASOUND: 12/31/2024 The study was acquired using digital technology and interpreted from soft copy. Current study was also evaluated with ICAD version 7.2. 2D digital mammographic views, as well as 3D digital tomosynthesis were performed in the CC and MLO projections. CLINICAL: Patient returns for a 1 year follow-up right breast. Due for annual. Patient has no complaints. No personal history of cancer. Paternal aunt had breast cancer. COMPARISONS: Comparison is made to exams dated: 07/01/2024, 07/01/2024, 12/28/2023, 12/28/2023, 07/19/2023, and 06/27/2022 [facility]. [...] seen. This was previously biopsied. This measures 2.1 x 1.9 x 1.0 cm, previously 1.8 x 1.7 x 0.8 cm. Previous biopsy showed fat necrosis. This will continue to be classified as probably benign. IMPRESSION: OVERALL STUDY BIRADS: CATEGORY 3: PROBABLY BENIGN Lesion in the right breast continue to be classified as probably benign. A follow-up mammogram and an ultrasound in 12 months are recommended to demonstrate stability. The results and recommendations were discussed with the patient. Electronically signed by: Ary Singh M.D. ll/:12/31/2024 11:04:46 Rn Float(s): Geno Benites, RT(R)(M), [facility]; ANSHU Block, [facility] letter sent: Birad 3 Followup Reading location: [facility] OVERALL STUDY BIRADS: Category 3: Probably Benign Procedure Note Ary Singh MD - 12/31/2024 - CAITLIN DIAG BILATERAL DIGITAL W CAD W [place] - CAITLIN US BREAST LIMITED RT BILATERAL DIGITAL DIAGNOSTIC MAMMOGRAM 3D/2D WITH CAD WITH MEDIOLATERAL OBLIQUE CRANIOCAUDAL AND RIGHT ULTRASOUND: 12/31/2024 The study was acquired using digital technology and interpreted from soft copy. Current study was also evaluated with ZenedyD version 7.2. 2D digital mammographic views, as well as 3D digital tomosynthesis were performed in the CC and MLO projections. CLINICAL: Patient returns for a 1 year follow-up right breast. Due for annual. Patient has no complaints. No personal history of cancer. Paternal aunt had breast cancer. COMPARISONS: Comparison is made to exams dated: 07/01/2024, 07/01/2024, 12/28/2023, 12/28/2023, 07/19/2023, and 06/27/2022 [facility]. BREAST TISSUE:There are scattered areas of [...] seen. This was previously biopsied. This measures 2.1 x 1.9 x 1.0 cm, previously 1.8 x 1.7 x 0.8 cm. Previous biopsy showed fat necrosis. This will continue to be classified as probably benign. IMPRESSION: OVERALL STUDY BIRADS: CATEGORY 3: PROBABLY BENIGN Lesion in the right breast continue to be classified as probably benign. A follow-up mammogram and an ultrasound in 12 months are recommended to demonstrate stability. The results and recommendations were discussed with the patient. Electronically signed by: Ary Singh M.D. ll/:12/31/2024 11:04:46 Rn Float(s): RT Skylar(R)(M), [facility]; ANSHU Block, [facility] letter sent: Birad 3 Followup Reading location: [facility] OVERALL STUDY BIRADS: Category 3: Probably Benign Warner Morataya MD IMG MAMMO ORDERABLES Final Result from Last 3 Months or Most Recently Relevant to Health Maintenance Insurance MEDICARE [employer] MEDICARE SUP Care Teams Commercial Real Estate Broker Relationship Specialty Start Date End Date Minerva Lim APRN, HARDWOOD SAWYER PCP - General Certified Nurse Practitioner 07/10/20
--- OUTSIDE RECORDS SUMMARY | 2025-04-04 21:48 | XMS_ITS | Clinical Summary ---
Author Organization [facility] Address [address] [place] [address] Care Team Providers Care Edge Cutting Machine Operator Name Role Phone Unavailable Primary Care Provider Unavailabl e Source Comments [facility],non-owned Affiliates and Associated Physician Practices is amultiple site organization consisting of ambulatory clinics and hospital sitesin [place], [place], [place] and [place]. This disclosure is being madepursuant to the Care Everywhere program and may not contain all information available regarding this patient. Last updated 18.[facility] Social History Tobacco Use Types Packs/Day Years Used Date Smoking Tobacco: Never Assessed Comments Unknown Sex and Gender Information Value Date Recorded Sex Assigned at Not on file Legal Sex Female 12:39 PM CDT Gender Identity Not on file Sexual Orientation Not on file Plan of Treatment Health Maintenance Due Date Last Done Comments BONE DENSITY TESTING 1950 HEPATITIS C SCREENING 08/16/1966 DTAP/TDAP/TD VACCINES (1 - Tdap) 1967 PNEUMOCOCCAL VACCINE 50+ (1 of 1 - PCV) 1998 ZOSTER VACCINE (1 of 2) 1998 Respiratory Syncytial Virus (RSV) Vaccine Pt: or over 60 yrs (1 - 1-dose 75+ series) 2023 COVID-19 VACCINE ( - 2023-2 5 season) 2024 DEPRESSION SCREENING 09/04/2024 INFLUENZA VACCINE (#1) 2025 HEPATITIS B VACCINE Aged Out No longe r eligible based on patient's age to complete this topic HIB VACCINE Aged Out No longer eligi ble based on patient's age to complete this topic HPV VACCINE Aged Out No longer eligi ble based on patient's age to complete this topic MENINGOCOCCAL (Group B) VACC INE SHARED DECISION-MAKING Aged Out No longer eligibl e based on patient's age to complete this topic MENINGOCOCCAL GROUPS A/C/Y/W VACCINE Aged Out No longer eligible b ased on patient's age to complete this topic Insurance MEDICARE [place] [address] [facility]
--- OUTSIDE RECORDS SUMMARY | 2025-04-04 21:48 | XMS_ITS | Encounter Summary ---
Author Organization [facility] Address [address] [place] [address] Phone Care Team Providers Care Criminal Profiler Name Role Phone Minerva Lim APRN, CNP Primary Care Provider + Encounter Details Date Type Department Care Team (Latest Contact Info) Description 04/30/2024 Transcribe Orders [facility] Mammography [address] [place] [address] Genet Cunningham APRN, PETROLEUM GEOLOGIST [address] [place] [address] Abnormal mammogram (Primary Dx) Social History Tobacco [...] unspecified documented in this encounter Care Teams Criminal Profiler Relationship Specialty Start Date End Date Minerva Lim APRN, CNP PCP - General Certified Nurse Practitioner 07/10/20 documented as of this encounter
[2025-04-05 00:27] LABS: Hematocrit 36.3 % (37.0-47.0); Hemoglobin 11.6 g/dL (12.0-15.0); Immature Granulocyte Percent A 0.2 % (0-0.5); Lymphocytes Absolute Auto 1.97 K/mm3 (0.9-3.2); Mean Corpuscular HGB Conc 32.0 g/dl (32-36); Mean Corpuscular Hemoglobin 25.7 pg (26-34); Mean Corpuscular Volume 80.5 fl (80-100); Nucleated Red Blood Cells Absolute Auto 0.000 K/mm3 (0.0-0.012); Nucleated Red Blood Cells Perc 0.0 % (0.0-0.2); Platelet Count Result 270 k/mm3 (150-375); Red Blood Count 4.51 M/mm3 (4.2-5.4); White Blood Count 5.0 K/mm3 (4.5-10.0)
--- OUTSIDE RECORDS SUMMARY | 2025-04-05 00:37 | XMS_ITS | Clinical Summary ---
Author Organization [facility] Address [address] [place] [address] Care Team Providers Care Director Index Name Role Phone Unavailable Primary Care Provider Unavailabl e Source Comments [facility],non-owned Affiliates and Associated Physician Practices is amultiple site organization consisting of ambulatory clinics and hospital sitesin [place], [place], [place] and [place]. This disclosure is being madepursuant to the Care Everywhere program and may not contain all information available regarding this patient. Last updated 18.[facility] Social History Tobacco Use Types Packs/Day [...] age to complete this topic Insurance MEDICARE [facility] [place] [address] [facility] PL[facility]
--- OUTSIDE RECORDS SUMMARY | 2025-04-05 00:37 | XMS_ITS | Encounter Summary ---
Author Organization [facility] Address [address] [place] [address] Phone Care Team Providers Care Wireless Network Engineer Name Role Phone Minerva Lim APRN, CASIMIRO Primary Care Provider + Reason for Referral * Radiology Services (Routine) - Closed Specialty Diagnoses / Procedures Referred By Contac t Referred To Contact Radiology Diagnoses Abnormal mammogram Procedures [facility] BREAST LIMITED RT Warner Morataya MD [address] [address] Phone: tel: fax: Referral ID Status Reason Start Date Expiration Date Visits Re quested Visits Authorized [id number] Closed 05/14/2024 1 1 * Radiology Services (Routine) - Closed Specialty Diagnoses / Procedures Referred By Contac t Referred To Contact Radiology Diagnoses Abnormal mammogram Procedures CAITLIN DIAG RIGHT UNILATERAL DIGITAL W CAD W Warner Mcelroy MD [address] [address] Phone: tel: fax: Referral ID Status Reason Start Date Expiration Date Visits Re quested Visits Authorized [id number] Closed 05/14/2024 1 1 Encounter Details Date Type Department Care Team (Late st Contact Info) Description 05/14/2024 Transcribe Orders [facility] Mammography [address] [place] [phone] Warner Morataya MD [address] [phone] Abnormal mammogram (Primary Dx) Social History Tobacco [...] to exams dated: 07/19/2023, 12/28/2023, [facility]. BREAST TISSUE:There are scattered areas of [...] signed by: Ary Singh M.D. ll/:07/02/2024 15:13:25 Home Teaching Grades 7 And 8 Teacher(s): Violet Lee, RT(R)(M), [facility]; JAMIE Ramirez, [facility] letter sent: Birad 3 Followup Reading location: [facility] OVERALL STUDY BIRADS: Category 3: Probably Benign [...] to exams dated: 07/19/2023, 12/28/2023, and 06/27/2022 [facility]. BREAST TISSUE:There are scattered areas of fibroglandular [...] signed by: Ary Singh M.D. ll/:07/02/2024 15:13:25 Home Teaching Grades 7 And 8 Teacher(s): Violet Lee, RT(R)(M), [facility]; JAMIE Ramirez, [facility] letter sent: Birad 3 Followup Reading location: [facility] OVERALL STUDY BIRADS: Category 3: Probably Benign [...] to exams dated: 07/19/2023, 12/28/2023, and 06/27/2022 [facility]. BREAST TISSUE:There are scattered areas of fibroglandular [...] signed by: Ary Singh M.D. ll/:07/02/2024 15:13:25 Home Teaching Grades 7 And 8 Teacher(s): RT Katelin(R)(M), [facility]; JAMIE Ramirez, [facility] letter sent: Birad 3 Followup Reading location: [facility] OVERALL STUDY BIRADS: Category 3: Probably Benign [...] to exams dated: 07/19/2023, 12/28/2023, and 06/27/2022 [facility]. BREAST TISSUE:There are scattered areas of fibroglandular [...] signed by: Ary Singh M.D. ll/:07/02/2024 15:13:25 Home Teaching Grades 7 And 8 Teacher(s): Violet Lee RT(R)(M), [facility]; Park Porras RDMS OBCARLOS, [facility] letter sent: Birad 3 Followup Reading location: [facility] OVERALL STUDY BIRADS: Category 3: Probably Benign Warner Morataya MD IMG MAMMO ORDERABLES Final Result documented in this encounter Visit Diagnoses Diagnosis Abnormal mammogram- Primary Abnormal mammogram, unspecified Abnormal mammogram Abnormal mammogram, unspecified Abnormal mammogram Abnormal mammogram, unspecified documented in this encounter Care Teams Wireless Network Engineer Relationship Specialty Start Date End Date Minerva Lim, EDEN, CASIMIRO PCP - General Certified Nurse Practitioner 07/10/20 documented as of this encounter
--- OUTSIDE RECORDS SUMMARY | 2025-04-05 00:37 | XMS_ITS | Clinical Summary ---
Author Organization [facility] Address [address], [address] [address] Phone Care Team Providers Care Advanced Analytics Associate Name Role Phone Minerva Lim APRN, PHOTO MASK INSPECTOR Primary Care Provider + Allergies Active Allergy [...] Comments Blood Pressure 142/86 09/14/2021 8:49 AM STREETCAR STARTER Pulse 85 09/14/2021 8:49 AM STREETCAR STARTER Temperature 36.9 C (98.5 F) 09/14/2021 8:49 [address] STREETCAR STARTER Respiratory Rate 18 09/14/2021 8:49 AM STRE[address]CAR STARTER Oxygen Saturation 100% 09/14/2021 8:49 [address] ST[address]CAR STARTER Inhaled Oxygen Concentration - - Weight - [...] CDT Narrative 12/31/2024 12:52 PM CDT - [facility] DIAG BILATERAL DIGITAL W CAD W [...] 07/01/2024, 07/01/2024, 12/28/2023, 12/28/2023, 07/19/2023, and 06/27/2022 [facility]. BREAST TISSUE:There are scattered areas of fibroglandular [...] signed by: Ary Singh M.D. ll/:12/31/2024 11:04:46 County Records Management Officer(s): Geno Benites, RT(R)(M), [facility]; ANSHU Block, [facility] letter sent: Birad 3 Followup Reading [...] copy. Current study was also evaluated with [employer] version 7.2. 2D digital mammographic views, as well as 3D digital tomosynthesis were performed in the CC and MLO projections. CLINICAL: Patient returns for a 1 year follow-up right breast. Due for annual. Patient has no complaints. No personal history of cancer. Paternal aunt had breast cancer. COMPARISONS: Comparison is made to exams dated: 07/01/2024, 07/01/2024, 12/28/2023, 12/28/2023, 07/19/2023, and 06/27/2022 [facility]. BREAST TISSUE:There are scattered areas of [...] signed by: Ary Singh M.D. ll/:12/31/2024 11:04:46 County Records Management Officer(s): RT Skylar(R)(M), [facility]; ANSHU Block, [facility] letter sent: Birad 3 Followup Reading location: [facility] OVERALL STUDY BIRADS: Category 3: Probably Benign Warner Morataya MD IMG MAMMO ORDERABLES Final Result from Last 3 Months or Most Recently Relevant to Health Maintenance Insurance MEDICARE [employer] MEDICARE SUP Care Teams Advanced Analytics Associate Relationship Specialty Start Date End Date Minerva Lim APRN, PHOTO MASK INSPECTOR PCP - General Certified Nurse Practitioner 07/10/20
--- OUTSIDE RECORDS SUMMARY | 2025-04-05 00:37 | XMS_ITS | Encounter Summary ---
Author Organization [facility] Address [address] [place] [address] Phone Care Team Providers Care Exercise Equipment Specialist Name Role Phone Minerva Lim APRN, CNP Primary Care Provider + Encounter Details Date Type Department Care Team (Latest Contact Info) Description 04/30/2024 Transcribe Orders [facility] Mammography [address] [place] [address] Genet Cunningham APRN, PEDIATRIC CNS [address] [place] [address] Abnormal mammogram (Primary Dx) Social History Tobacco [...] unspecified documented in this encounter Care Teams Exercise Equipment Specialist Relationship Specialty Start Date End Date Minerva Lim APRN, CNP PCP - General Certified Nurse Practitioner 07/10/20 documented as of this encounter
[2025-04-05 00:38] LABS: INR 1.0; Prothrombin Time 13.5 Seconds (11.1-14.7)
[2025-04-05 00:39] LABS: Partial Thromboplastin Time 34.7 Seconds (22.3-36.8)
[2025-04-05 00:40] LABS: Alanine Aminotransferase 21 U/L (6-35); Albumin Level 4.3 g/dL (3.5-5.1); Alkaline Phosphatase 150 U/L (38-126); Anion Gap 7 mmol/L (4-12); Aspartate Amino Transferase 36 U/L (14-36); Bilirubin,Total 0.8 mg/dL (0.2-1.3); Blood Urea Nitrogen 23 mg/dL (7-17); Calcium 10.3 mg/dL (8.4-10.2); Carbon Dioxide 27 mmol/L (22-30); Chloride 104 mmol/L (98-107); Estimated CRCL calculation 41 ml/min; Estimated Glomerular Filt Rate 53; Glucose 103 mg/dL (65-110); Potassium 3.4 mmol/L (3.4-5.0); Sodium 138 mmol/L (137-145); Total Protein 7.4 g/dL (6.3-8.2)
[2025-04-05 01:37] VITALS: BP 152/85; PULSE 55; RESP 16; TEMP 36.6; O2SAT 99
[2025-04-05 01:53] LABS: Add Urine Microscopic? YES; Appearance Urine Clear (Clear); Glucose Urine UA Negative (Negative); Leukocyte Esterase Ur Trace LEU/UL (Negative); Need Manual Microscopic Reviewed; Nitrate Urine Negative (Negative); Non Pathogenic Casts 0-2; Specific Grav Ur 1.022 (1.001-1.035)
--- NOTE | 2025-04-05 02:19 | ED_ITS ---
HPI - Female Genitourinary General Chief complaint: Vaginal Bleeding Stated complaint: vaginal bleeding x15 min ago Time Seen by Provider: 04/04/25 23:58 History of Present Illness HPI Narrative: Patient was in the shower when she noticed blood dripping down her leg from her vulva, has never had this before. Later when she was urinating had some pain to her vulva and some blood when she wiped. Related Data Home Medications ?Medication ?Instructions ?Recorded ?Confirmed ?Last Taken ?Type calcium carbonate 500 mg PO DAILY 11/14/19 12/09/24 07/21/24 History cholecalciferol (vitamin D3) 50 2,000 unit PO DAILY 11/14/19 12/09/24 07/21/24 History mcg (2,000 unit) chewable tablet lutein 20 mg tablet 20 mg PO DAILY 11/14/19 12/09/24 07/21/24 History multivitamin 1 tablet PO DAILY 11/14/19 12/09/24 07/21/24 History vitamin E (dl, acetate) 180 mg 400 unit PO DAILY 11/14/19 12/09/24 07/21/24 History (400 unit) capsule ferrous sulfate 325 mg (65 mg 325 mg PO WEEKLY 05/24/21 12/09/24 07/21/24 History iron) capsule,extended release Allergies Allergy/AdvReac Type Severity Reaction Status Date / Time azithromycin Allergy Mild thrush Verified 12/09/24 09:05 Sulfa (Sulfonamide Allergy Mild hives Verified 12/09/24 09:05 Antibiotics) sulfanilamide Allergy Mild hives Verified 12/09/24 09:05 Review of Systems 2 Review of Systems: All systems reviewed & are unremarkable except as noted in HPI and below PMFSH Past Medical History Medical History (Updated 04/05/25 @ 02:03 by Beverly Bhakta MD) Fracture of 5th metatarsal (~04/2022) H/O fracture of rib (~02/2016) Essential (primary) hypertension Hyperlipidemia Anxiety Hypothyroid Osteopenia Dexa - 10/14/24 Surgical History Surgical History History of toe surgery (~2014) hammer toe repair History of cataract extraction (~2013) Family History Family History Other Hypertension Social History Social History Social History: Caffeine- Smoking packs per day: 0.5 Smoking cigarettes per day: 10.0 Smoking status: Former smoker Tobacco type: cigarettes Second hand tobacco smoke exposure: No Alcohol intake: current Alcohol use details: occasionally Substance use: never Substance use type: does not use Lack of Transportation: No Lack of Food: Never True Current Housing: I Have Housing Concerned About Future Housing: No Difficulty Paying Gas/Electric Bills: No Difficulty Paying for Meds: No Currently Unemployed: No Education: High School Diploma/GED Difficulty w/ Childcare or Family Care: No Living arrangements: alone Occupation/Education: retired Gender identity (if verbalized by the patient): Female Spiritual care concerns: No Agree to blood products: Yes Exam 2 Narrative: EXAMINATION OF ORGAN SYSTEMS/BODY AREAS: Constitutional: Vital signs per nursing GENERAL:[No acute distress, non-toxic appearing.] HEAD: Normal with no signs of head trauma. EYES: EOMI, conjunctiva normal ENT: Hearing grossly intact LUNGS: Nonlabored breathing. HEART: [Regular rate and rhythm] ABD: [Soft], [nontender to palpation] : Tiny punctate pink lesion to L inner vulva, not actively bleeding. No obvious masses seen on speculum exam, normal-appearing cervix EXT: Normal range of motion SKIN: [No rashes or lesions.] NEURO: [Alert and oriented x 3. No gross focal sensory or strength deficits.] PSYCH: Normal affect Course Vital Signs Vital signs: Vital Signs Temperature 98.2 F 04/04/25 21:47 Pulse Rate 68 04/04/25 21:47 Respiratory Rate 18 04/04/25 21:47 Blood Pressure 156/67 H 04/04/25 21:47 Pulse Oximetry 98 04/04/25 21:47 Oxygen Delivery Room Air 04/04/25 21:47 Temperature 97.8 F 04/05/25 01:37 Pulse Rate 55 L 04/05/25 01:37 Respiratory Rate 16 04/05/25 01:37 Blood Pressure 152/85 H 04/05/25 01:37 Pulse Oximetry 99 04/05/25 01:37 Oxygen Delivery Room Air 04/05/25 01:37 MDM - Female Genitourinary MDM Narrative Medical decision making narrative: Patient presents here with episode of vaginal bleeding; on exam I do see a tiny spot that is slightly irritated/uncomfortable for patient on her left inner vulva, where the bleeding may have been coming from, which thankfully is no longer bleeding. Denies any other sites of bleeding in the vagina, and on rectal exam, there is no signs of blood either. Labs within acceptable limits, I will give her follow-up to administrative support assoc due to concern for possible malignancy given her age bleeding, with return precautions. Patient agreeable to plan Lab Data 04/05/25 00:18 04/05/25 00:18 Labs: Lab Results 04/05/25 04/05/25 Range/Units 00:18 01:17 WBC 5.0 (4.5-10.0) K/mm3 RBC 4.51 (4.2-5.4) M/mm3 Hgb 11.6 L (12.0-15.0) g/dL Hct 36.3 L (37.0-47.0) % MCV 80.5 (80-100) fl MCH 25.7 L (26-34) pg MCHC 32.0 (32-36) g/dl RDW 14.3 (11.5-14.5) % Plt Count 270 (150-375) k/mm3 MPV 8.9 (7.4-10.4) fl Immature Gran % (Auto) 0.2 (0-0.5) % Neut % (Auto) 46.7 (45.5-73.1) % Lymph % (Auto) 39.5 (18.3-44.2) % Villalba % (Auto) 9.0 H (2.6-8.5) % Eos % (Auto) 3.2 (0-4.4) % Baso % (Auto) 1.4 H (0.2-1.2) % Lymph # (Auto) 1.97 (0.9-3.2) K/mm3 Villalba # (Auto) 0.5 (0.1-0.6) K/mm3 Eos # (Auto) 0.2 (0-0.3) K/mm3 Baso # (Auto) 0.1 (0.0-0.1) K/mm3 Abs Immat Gran (auto) 0.01 (0.00-0.031) K/mm3 Absolute Neuts (auto) 2.3 (1.3-6.7) K/mm3 Absolute Nucleated RBC 0.000 (0.0-0.012) K/mm3 Nucleated RBC % 0.0 (0.0-0.2) % PT 13.5 (11.1-14.7) Seconds INR 1.0 APTT 34.7 (22.3-36.8) Seconds Sodium 138 (137-145) mmol/L Potassium 3.4 (3.4-5.0) mmol/L Chloride 104 (98-107) mmol/L Carbon Dioxide 27 (22-30) mmol/L Anion Gap 7 (4-12) mmol/L BUN 23 H (7-17) mg/dL Creatinine 1.01 H (0.7-1.0) mg/dL Estim Creat Clear Calc 41 ml/min Estimated GFR 53 L (59 - ) Glucose 103 (65-110) mg/dL Calcium 10.3 H (8.4-10.2) mg/dL Total Bilirubin 0.8 (0.2-1.3) mg/dL AST 36 (14-36) U/L ALT 21 (6-35) U/L Alkaline Phosphatase 150 H (38-126) U/L Total Protein 7.4 (6.3-8.2) g/dL Albumin 4.3 (3.5-5.1) g/dL Urine Color Yellow (Yellow) Urine Appearance Clear (Clear) Urine pH 6.0 (5.0-9.0) Ur Specific Villisca 1.022 (1.001-1.035) Urine Protein Negative (Negative) mg/dL Urine Glucose (UA) Negative (Negative) mg/dL Urine Ketones Trace H (Negative) mg/dL Ur Blood (Man) 1+ H (Negative) Urine Nitrate Negative (Negative) Urine Bilirubin Negative (Negative) Urine Urobilinogen 1.0 (<2.0) mg/dL Add Ur Microanalysis Reviewed Leukocyte Esterase Rfl Trace H (Negative) KENNEY/UL Urine RBC 0-2 (0-2) /hpf Urine WBC 0-5 (0-3) /hpf Ur Squamous Epith Cells None seen (Few) /hpf Urine Bacteria None seen /hpf Urine Casts 0-2 Urine Mucus Present /lpf Discharge Plan Discharge Clinical Impression: Vulvar bleeding Patient Disposition: Home Condition: Stable Additional Instructions: You did have an area around your vulva that was bleeding which has thankfully stopped. I did not find any other source of bleeding at this time. Please follow-up with a enterprise infrastructure architect for further evaluation. You can always return to the emergency room for any further issues. Patient Language: South Sudanese Prescriptions: No Action multivitamin Tablet 1 tablet PO DAILY calcium carbonate 500 mg calcium (1,250 mg) tablet,chewable 500 mg PO DAILY vitamin E (dl, acetate) 400 unit capsule 400 unit PO DAILY lutein 20 mg tablet 20 mg PO DAILY Rx Instructions: give with meal/snack cholecalciferol (vitamin D3) 2,000 unit tablet,chewable 2,000 unit PO DAILY ferrous sulfate 325 mg (65 mg iron) capsule, extended release 325 mg PO WEEKLY losartan-hydrochlorothiazide 100-12.5 mg tablet See Rx Instructions .ROUTE .COMPLEX Qty: 90 1RF Dose Instruction: Take 1 tablet by mouth once daily Rx Instructions: Take 1 tablet by mouth once daily levothyroxine 50 mcg tablet 50 mcg PO DAILY Qty: 90 1RF fluoxetine 20 mg capsule 20 mg PO DAILY Qty: 90 1RF amlodipine 5 mg tablet 5 mg PO DAILY Qty: 90 1RF calcium carbonate-vitamin D3 [Calcium 600 + D(3)] 600 mg-5 mcg (200 unit) capsule 1 cap PO BID Qty: 60 0RF alprazolam 0.25 mg tablet 0.25 mg PO DAILY PRN (Reason: anxiety) Qty: 5 0RF sodium,potassium,mag sulfates [Suprep Bowel Prep Kit] 17.5-3.13-1.6 gram recon soln See Rx Instructions PO .COMPLEX Qty: 354 0RF Rx Instructions: Take as directed per the written instructions that were mailed to you. Follow-up/Referrals: Minerva Lim NP [Primary Care Provider] - Emilie Velásquez MD [Physician] - 2 Days
== END 2025-04-05 02:21 | disposition home or self-care (01) ==
PROVIDERS: Emergency Provider Emergency Medicine; PCP Nurse Practitioner Family
DX: N93.9 Abnormal uterine and vaginal bleeding, unspecified (principal); I10 Essential (primary) hypertension; E78.5 Hyperlipidemia, unspecified; F41.9 Anxiety disorder, unspecified; E03.9 Hypothyroidism, unspecified; M85.80 Other specified disorders of bone density and structure, unspecified site; Z98.49 Cataract extraction status, unspecified eye; Z87.891 Personal history of nicotine dependence; Z79.899 Other long term (current) drug therapy
CPT/HCPCS: 36415; 80053; 81001; 85025; 85610; 85730; 99283

== ENCOUNTER 2025-05-19 00:32 | Day surgery (SDC) | payer MEDICARE, OTHER, SELFPAY ==
[2025-05-09 09:29] VITALS: BMI 27.6
--- NOTE | 2025-05-09 09:40 | PC.NURSE ---
Report to the Outpatient Waiting Room, entrance under the green pavilion located off [facility], at time __1200pm on date _05/19/25 . Planned Procedure Time: __2:00pm .? Time changes happen often and if your time is changed the preop area will call you the afternoon before. - You and your visitor will be asked to self-screen and do not enter if you have any COVID symptoms. Please call surgeon if you need to reschedule. - A mask is optional within the hospital at this time. Patients may have clear liquids (water, carbonated beverages, clear teas, apple juice) until 3 hours prior to surgery with a maximum of 20 ounces. - No food from midnight until time of surgery and no smoking, or chewing tobacco (or any form of nicotine). No chewing gum, candy or mints.(1100am) Take only the following medications with a SIP of water on the morning of surgery: __Amlodipine, Fluoxetine, Levothyroxine DO NOT STOP ANY OF YOUR OTHER PRESCRIPTION MEDICATIONS PRIOR TO SURGERY EXCEPT THE FOLLOWING Hold all vitamins and supplements for 3 days per anesthesiologist. Date of last dose 05/15/25 Medications to discontinue per physician NONE Date to take last dose NONE Please no make-up, nail colombian, hairspray, perfume, deodorant, or body powder the day of surgery.? No jewelry (including any body piercings) or valuables the day of surgery, leave them at home.? Please take a shower or bath the night before, or the morning of, surgery with an antibacterial soap.?( GOLD DIAL ) Wear comfortable, loose fitting clothing.? - Jewelry must be removed prior to entering the operating room.? Rings and piercings that are not removed may be cut off. - The hospital will not accept responsibility for valuables.? - Please leave all valuables, including medications, at home the day of surgery. If you are going home after surgery, a licensed powder truck driver must drive you home.? - NO public transportation without another adult if you receive anesthesia. - We recommend that an adult stay with you for 24 hours following discharge. - We also recommend that you do not drive, make important decision, drink alcoholic beverages, or take any drugs that were not prescribed by your health care provider for at least 24 hours after your discharge time. Follow any additional instructions given to you from your surgeon. Telephone instructions given to ____Patient and asked if any additional questions and then verbalized understanding. Patient advised to call surgeon office or pre surgery nurse liaison [phone] if any additional questions.
--- OUTSIDE RECORDS SUMMARY | 2025-05-19 00:43 | XMS_ITS | Encounter Summary ---
Author Organization [facility] Address [address] [place] [address] Phone Care Team Providers Care Hooker Machine Tender Name Role Phone Minerva Lim APRN, CNP Primary Care Provider + Encounter Details Date Type Department Care Team (Latest Contact Info) Description 04/30/2024 Transcribe Orders [facility] Mammography [address] [place] [address] Genet Cunningham APRN, REPAIR DEPARTMENT MANAGER [address] [place] [address] Abnormal mammogram (Primary Dx) Social History Tobacco [...] unspecified documented in this encounter Care Teams Hooker Machine Tender Relationship Specialty Start Date End Date Minerva Lim APRN, CNP PCP - General Certified Nurse Practitioner 07/10/20 documented as of this encounter
--- OUTSIDE RECORDS SUMMARY | 2025-05-19 00:43 | XMS_ITS | Clinical Summary ---
Author Organization [facility] Address [address] [place] [address] Care Team Providers Care Upsetter Name Role Phone Minerva Lim NP Primary Care Provider [phone] Encounters Date Type Department Care Team Description 04/21/2025 8:52 AM CDT - 04/21/2025 11:59 PM CDT Hospital Encounter [facility] [address] [place] [address] Postmenopausal bleeding Discharge Disposition: Discharge to home or self care from Last 3 Months Surgical History Surgery Date Site/Laterality Comments BREAST BIOPSY 07/29/2020 Right Social History Tobacco Use Types Packs/Day Years Used Date Smoking Tobacco: Never Assessed Comments Unknown Sex and Gender Information Value Date Recorded Sex Assigned at Not on file Legal Sex Female 1:57 AM 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 MANAGER Gender Identity Not on file Sexual Orientation Not on file Obstetrics History Last Filed Vital Signs Vital Sign Reading Time Taken Comments Blood Pressure 124/78 04/22/2014 12:28 PM CDT Pulse 65 04/22/2014 12:28 PM CDT Temperature 36.4 C (97.5 F) 04/22/2014 12:28 PM CDT Respiratory Rate - - Oxygen Saturation 98% 04/22/2014 12:28 PM CDT Inhaled Oxygen Concentration - - Weight 80.3 kg (177 lb) 04/22/2014 12:28 PM CDT Height 165.1 cm (5' 5) 04/22/2014 12:28 PM CDT Body Mass Index 29.45 04/22/2014 12:28 PM CDT Plan of Treatment Health Maintenance Due Date Last Done Comments Depression Screening 1950 Fall Risk Assessment 1950 Hepatitis C Screening 1950 Osteoporosis Screening-Bone Density Scan 1950 Hepatitis B Screening 1966 Well Visit 65+ 2013 Zoster Vaccine (2 of 3) 07/09/2017 05/14/2017 Influenza Vaccine (#1) 2025 06/25/2018 DTaP/Tdap/Td Vaccine (2 - Td or Tdap) 06/24/2026 Pneumococcal vaccine 65+ Completed 06/25/2018, 05/05 Procedures Procedure Name Priority Date/Time Associated Diagnosis Comments US PELVIS W ENDOVAGINAL Schedule Routine, Read Routine (OP Routine) 04/21/2025 9:40 AM CDT Postmenopausal bleeding from Last 3 Months Results * US Pelvis W Endovaginal (04/21/2025 9:40 AM CDT) Anatomical Region Laterality Modality Pelvis N/A Ultrasound 04/28/2025 6:41 AM CDT Narrative 04/28/2025 6:44 AM CDT EXAM DESCRIPTION: US PELVIS W ENDOVAGINAL REASON FOR STUDY: N95.0, postmenopausal bleeding with salpingectomy TECHNIQUE: Grayscale ultrasound of the pelvic contents was performed with transabdominal and transvaginal transducer. COMPARISON: None. FINDINGS: UTERUS: The uterus is retroverted the uterus is heterogeneous in echotexture and measures 5.8 x 3.2 x 2.7 cm. ENDOMETRIUM: The endometrium measures 0.4 cm in thickness. The endometrium appears heterogeneous and somewhat indistinct. RIGHT OVARY: The right ovary could not be demonstrated for assessment. LEFT OVARY: The left ovary measures 1.8 x 1.9 x 2.9 cm. There is documentation of color Doppler flow in the left ovary. The left ovary has a cystic structure measuring 2.2 x 1.3 x 1.5 cm. PELVIC FLUID: Minimally complex free fluid in the left adnexa small amount. OTHER: No other significant findings. IMPRESSION: 1. Endometrium is 0.4 cm which is within normal limits, although somewhat heterogeneous and indistinct. 2. Right ovary could not be demonstrated for assessment. 3. Left ovarian cystic structure 2.2 cm. 1 year ultrasound follow-up recommended. 4. Minimally complex free fluid in the left adnexa. THIS IS AN ELECTRONICALLY VERIFIED FINAL REPORT 04/28/2025 6:44 AM - Electronically signed by Dov Peralta M.D. CH: MARTÍN Report ID: [id number] Reading Location: [id number] Procedure Note Dov Peralta MD - 04/28/2025 EXAM DESCRIPTION: US PELVIS W ENDOVAGINAL REASON FOR STUDY: N95.0, postmenopausal bleeding with salpingectomy TECHNIQUE: Grayscale ultrasound of the pelvic contents was performed with transabdominal and transvaginal transducer. COMPARISON: None. FINDINGS: UTERUS: The uterus is retroverted the uterus is heterogeneous in echotexture and measures 5.8 x 3.2 x 2.7 cm. ENDOMETRIUM: The endometrium measures 0.4 cm in thickness. Theendometrium appears heterogeneous and somewhat indistinct. RIGHT OVARY: The right ovary could not be demonstrated for assessment. LEFT OVARY: The left ovary measures 1.8 x 1.9 x 2.9 cm. There is documentation of color Doppler flow in the left ovary. The left ovary hasa cystic structure measuring 2.2 x 1.3 x 1.5 cm. PELVIC FLUID: Minimally complex free fluid in the left adnexa smallamount. OTHER: No other significant findings. IMPRESSION: 1. Endometrium is 0.4 cm which is within normal limits, althoughsomewhat heterogeneous and indistinct. 2. Right ovary could not be demonstrated for assessment. 3. Left ovarian cystic structure 2.2 cm. 1 year ultrasound follow-up recommended. 4. Minimally complex free fluid in the left adnexa. THIS IS AN ELECTRONICALLY VERIFIED FINAL REPORT 04/28/2025 6:44 AM - Electronically signed by Dov Peralta M.D. CH: MARTÍN Report ID: [id number] Reading Location: [id number] Emilie Velásquez MD [facility] [place] PROCEDURES Final Result from Last 3 Months Insurance MEDICARE [employer] [facility] Advance Directives For more information, please contact: [phone] Documents on File Type Date Recorded Patient Diet Aid Expl anation ADVANCE DIRECTIVE 04/22/2014 12:00 AM JERSON GRIER WILL Care Teams Upsetter Relationship Specialty Start Date End Date Minerva Lim NP [address] [place] [address] PCP - General Family Medicine 04/10/25
--- OUTSIDE RECORDS SUMMARY | 2025-05-19 00:43 | XMS_ITS | Encounter Summary ---
Author Organization [facility] Address [address] [place] [address] Phone Care Team Providers Care Document Advisor Name Role Phone Minerva Lim APRN, CNP Primary Care Provider + Reason for Referral * Radiology Services (Routine) - Closed Specialty Diagnoses / Procedures Referred By Contac t Referred To Contact Radiology Diagnoses Abnormal mammogram Procedures [facility] BREAST LIMITED RT Warner Morataya MD [address] [address] Phone: tel: fax: Referral ID Status Reason Start Date Expiration Date Visits Re quested Visits Authorized [id number] Closed 05/14/2024 1 1 * Radiology Services (Routine) - Closed Specialty Diagnoses / Procedures Referred By Contac t Referred To Contact Radiology Diagnoses Abnormal mammogram Procedures CAITLIN DIAG RIGHT UNILATERAL DIGITAL W CAD W Warner Mcelroy MD [address] [address] Phone: tel: fax: Referral ID Status Reason Start Date Expiration Date Visits Re quested Visits Authorized [id number] Closed 05/14/2024 1 1 Encounter Details Date Type Department Care Team (Late st Contact Info) Description 05/14/2024 Transcribe Orders [facility] M[facility]ography [address] [place] [id number] Warner Morataya MD [address] [id number] Abnormal mammogram (Primary Dx) Social History Tobacco [...] to exams dated: 07/19/2023, 12/28/2023, and [facility]22 [facility]. BREAST TISSUE:There are scattered areas of [...] signed by: Ary Singh M.D. ll/:07/02/2024 15:13:25 Director Of Conservation(s): Violet Lee, RT(R)(M), [facility]; JAMIE Ramirez, [facility] letter sent: Birad 3 Followup Reading location: [facility] OVERALL STUDY BIRADS: Category 3: Probably [...] signed by: Ary Singh M.D. ll/:07/02/2024 15:13:25 Director Of Conservation(s): Violet Lee, RT(R)(M), [facility]; JAMIE Ramirez, [facility] letter sent: Birad 3 Followup Reading location: [facility] OVERALL STUDY BIRADS: Category 3: Probably [...] signed by: Ary Singh M.D. ll/:07/02/2024 15:13:25 Director Of Conservation(s): RT Katelin(R)(M), [facility]; JAMIE Ramirez, [facility] letter sent: Birad 3 Followup Reading location: [facility] OVERALL STUDY BIRADS: Category 3: Probably [...] signed by: Ary Singh M.D. ll/:07/02/2024 15:13:25 Director Of Conservation(s): Violet Lee RT(R)(M), [facility]; Park Porras RDMS OBCARLOS, [facility] letter sent: Birad 3 Followup Reading location: [facility] OVERALL STUDY BIRADS: Category 3: Probably Benign Warner Morataya MD IMG MAMMO ORDERABLES Final Result documented in this encounter Visit Diagnoses Diagnosis Abnormal mammogram- Primary Abnormal mammogram, unspecified Abnormal mammogram Abnormal mammogram, unspecified Abnormal mammogram Abnormal mammogram, unspecified documented in this encounter Care Teams Document Advisor Relationship Specialty Start Date End Date Minerva Lim, ED[place], CASIMIRO PCP - General Certified Nurse Practitioner 07/10/20 documented as of this encounter
--- OUTSIDE RECORDS SUMMARY | 2025-05-19 00:43 | XMS_ITS | Clinical Summary ---
Author Organization [facility] Address [address], [address] [address] Phone Care Team Providers Care Dip Tanker Name Role Phone Minerva Lim APRN, CASIMIRO Primary Care Provider + Allergies Active Allergy [...] Comments Blood Pressure 142/86 09/14/2021 8:49 AM BOBBIN DOFFER Pulse 85 09/14/2021 8:49 AM BOBBIN DOFFER Temperature 36.9 C (98.5 F) 09/14/2021 8:49 AM BOBBIN DOFFER Respiratory Rate 18 09/14/2021 8:49 AM BOBBIN DOFFER Oxygen Saturation 100% 09/14/2021 8:49 AM BOBBIN DOFFER Inhaled Oxygen Concentration - - Weight - - Height - - Body Mass Index - - Plan of Treatment Health Maintenance Due Date Last Done Comments DEXA Bone Density 1950 Hepatitis C Virus (HCV) Screening 1950 Zoster Immunization (2 of 3) 07/09/2017 05/14/2017 Respiratory Syncytial Virus (RSV) Immunization (Adult) (1 - 1-dose 75+ series) 2023 Influenza Immunization (#1) 2025 06/25/2018 SARS-COV-2 Immunization ( season) 2025 DTaP/Tdap/Td Immunization Discontinued 06/24/2016 TdaP Immunization Completed [...] CDT Narrative 12/31/2024 12:52 PM CDT - [facility] DIAG BILATERAL DIGITAL W CAD W [place] [...] 07/01/2024, 07/01/2024, 12/28/2023, 12/28/2023, 07/19/2023, and 06/27/2022 [facility]. BREAST TISSUE:There are scattered areas of fibroglandular [...] signed by: Ary Singh M.D. ll/:12/31/2024 11:04:46 Membership Sales Manager(s): Geno Benites, RT(R)(M), [facility]; ANSHU Block, [facility] letter sent: Birad 3 Followup Reading [...] copy. Current study was also evaluated with OpenSpaceD version 7.2. 2D digital mammographic views, as well as 3D digital tomosynthesis were performed in the CC and MLO projections. CLINICAL: Patient returns for a 1 year follow-up right breast. Due for annual. Patient has no complaints. No personal history of cancer. Paternal aunt had breast cancer. COMPARISONS: Comparison is made to exams dated: 07/01/2024, 07/01/2024, 12/28/2023, 12/28/2023, 07/19/2023, and 06/27/2022 [facility]. BREAST TISSUE:There are scattered areas of [...] signed by: Ary Singh M.D. ll/:12/31/2024 11:04:46 Membership Sales Manager(s): RT Skylar(R)(M), [facility]; ANSHU Block, [facility] letter sent: Birad 3 Followup Reading location: [facility] OVERALL STUDY BIRADS: Category 3: Probably Benign Warner Morataya MD IMG MAMMO ORDERABLES Final Result from Last 3 Months or Most Recently Relevant to Health Maintenance Insurance MEDICARE [employer] MEDICARE SUP Care Teams Dip Tanker Relationship Specialty Start Date End Date Minerva Lim, EDEN, ROLLER GOLD LEAF PCP - General Certified Nurse Practitioner 07/10/20
--- NOTE | 2025-05-19 07:33 | WPDHPUPDATE1 ---
History and Physical Update Update Date/Time: 05/19/25 07:33 History and Physical has been reviewed, including an updated exam of the patient. There are NO changes in the patient's condition. Risks, benefits, and alternatives have been discussed and questions answered. Patient agrees to proceed with procedure.
--- NOTE | 2025-05-19 07:33 | PM.HPGS ---
History of Present Illness History of Present Illness Consent: Risks, benefits, and alternatives have been discussed and questions answered. Patient agrees to proceed with procedure. Chief complaint: post menopausal bleeding Narrative: Negrita Ayon is a 74 year old female with postmenopausal bleeding and slightly thickened endometrium. The was recommended to undergo D&C hysteroscopy for further evaluation. Risks of infection, bleeding, perforation, and possible pathology are reviewed. Patient voices understanding and agrees to proceed. Review of Systems Review of Systems: not repeated day of surgery; patient states no changes in status PMFSH Past Medical History Medical History (Updated 05/19/25 @ 07:36 by Emilie Velásquez MD) (normal spontaneous vaginal delivery) History of ectopic 1974 open salpingectomy Fracture of 5th metatarsal (~04/2022) H/O fracture of rib (~02/2016) Essential (primary) hypertension Hyperlipidemia Anxiety Hypothyroid Osteopenia Dexa - 10/14/24 Surgical History Surgical History (Updated 05/19/25 @ 07:35 by Emilie Velásquez MD) History of breast biopsy History of toe surgery (~2014) hammer toe repair History of cataract extraction (~2013) Family History Family History Other Hypertension Social History Social History Social History: Caffeine- Smoking packs per day: 0.5 Smoking cigarettes per day: 10.0 Years smoked: 28 Smoking pack-years: 14.00 Smoking status: Former smoker Tobacco type: cigarettes Second hand tobacco smoke exposure: No Smoking end date: 09/04/98 Alcohol intake: current Alcohol use details: 1 per month Substance use: never Substance use type: does not use Lack of Transportation: No Lack of Food: Never True Current Housing: I Have Housing Concerned About Future Housing: No Difficulty Paying Gas/Electric Bills: No Difficulty Paying for Meds: No Currently Unemployed: No Education: High School Diploma/GED Difficulty w/ Childcare or Family Care: No Living arrangements: alone Occupation/Education: retired Gender identity (if verbalized by the patient): Female Spiritual care concerns: No Agree to blood products: Yes Meds Home Medications and Allergies Home Medications ?Medication ?Instructions ?Recorded ?Confirmed ?Type cholecalciferol (vitamin D3) 50 4,000 unit PO DAILY 11/14/19 05/09/25 History mcg (2,000 unit) chewable tablet lutein 20 mg tablet 20 mg PO DAILY 11/14/19 05/09/25 History multivitamin 1 tablet PO DAILY 11/14/19 05/09/25 History vitamin E (dl, acetate) 180 mg 400 unit PO DAILY 11/14/19 05/09/25 History (400 unit) capsule alprazolam 0.25 mg tablet 0.25 mg PO DAILY PRN anxiety #5 06/06/22 05/09/25 Rx Held on 05/09/25. tabs Instructions: Patient no longer taking amlodipine 5 mg tablet 5 mg PO DAILY #90 tabs 12/09/24 05/09/25 Rx calcium 600 mg (as 1 cap PO BID #60 caps 12/09/24 05/09/25 Rx carbonate)-vitamin D3 5 mcg (200 unit) capsule (Calcium 600 + D(3)) fluoxetine 20 mg capsule 20 mg PO DAILY #90 caps 12/09/24 05/09/25 Rx levothyroxine 50 mcg tablet 50 mcg PO DAILY #90 tabs 12/09/24 05/09/25 Rx losartan 100 See Rx Instructions .Route 12/09/24 05/09/25 Rx mg-hydrochlorothiazide 12.5 mg .COMPLEX #90 tabs tablet Allergies Allergy/AdvReac Type Severity Reaction Status Date / Time azithromycin Allergy Mild thrush Verified 05/09/25 09:23 Sulfa (Sulfonamide Allergy Mild hives Verified 05/09/25 09:23 Antibiotics) sulfanilamide Allergy Mild hives Verified 05/09/25 09:23 Exam Const: General: healthy appearing and alert Orientation/consciousness: patient oriented x3 Resp: Effort & Inspection: normal respiratory effort : External Female Exam: normal external appearance Speculum Exam - Vagina: normal appearance of the vagina and normal vaginal discharge Speculum Exam - Cervix: normal appearance of the cervix Bimanual exam- vagina & uterus: uterine size normal and consistency normal Bimanual Exam- Adnexa, other: normal adnexae and No adnexal tenderness Neuro: General: patient oriented x3 Assessment and Plan Assessment and plan (1) Post-menopausal bleeding: Code(s): N95.0 - Postmenopausal bleeding Status: Acute Assessment and Plan: Plan to proceed with D&C hysteroscopy
[2025-05-19 12:30] VITALS: BP 145/77; PULSE 61; RESP 16; TEMP 36.5; O2SAT 99
[2025-05-19] MEDS: ACETAMINOPHEN 500 MG TABLET 1000 MG PO (12:41)
[2025-05-19] MEDS: LACTATED RINGERS 1,000 ML 30 ML IV CONT (12:50)
--- NOTE | 2025-05-19 12:55 | WPDANESEPPF ---
Anes - Initial Pre Proc Eval Procedure: Operation Date: 05/19/25 14:00 Proposed Procedures p Hysteroscopy Dilation and Curettage - Emilie Velásquez MD Date/Time: 05/19/25 12:55 Surgeon: Emilie Velásquez MD Pre Op Diagnosis: post menopausal bleeding Patient Data Age: 74 Gender: F Height: 1.63 m Weight: 74.9 kg Last Vital Signs Temp 36.5 C 05/19/25 12:30 Pulse 61 05/19/25 12:30 Resp 16 05/19/25 12:30 BP 145/77 H 05/19/25 12:30 Pulse Ox 99 05/19/25 12:30 O2 Del Method Room Air 05/19/25 12:30 Allergies Allergy/AdvReac Type Severity Reaction Status Date / Time azithromycin Allergy Mild thrush Verified 05/19/25 12:34 Sulfa (Sulfonamide Allergy Mild hives Verified 05/19/25 12:34 Antibiotics) sulfanilamide Allergy Mild hives Verified 05/19/25 12:34 Home Medications ?Medication ?Instructions ?Recorded ?Confirmed ?Type cholecalciferol (vitamin D3) 50 4,000 unit PO DAILY 11/14/19 05/19/25 History mcg (2,000 unit) chewable tablet lutein 20 mg tablet 20 mg PO DAILY 11/14/19 05/09/25 History multivitamin 1 tablet PO DAILY 11/14/19 05/19/25 History vitamin E (dl, acetate) 180 mg 400 unit PO DAILY 11/14/19 05/19/25 History (400 unit) capsule alprazolam 0.25 mg tablet 0.25 mg PO DAILY PRN anxiety #5 06/06/22 05/09/25 Rx Held on 05/09/25. tabs Instructions: Patient no longer taking amlodipine 5 mg tablet 5 mg PO DAILY #90 tabs 12/09/24 05/19/25 Rx calcium 600 mg (as 1 cap PO BID #60 caps 12/09/24 05/19/25 Rx carbonate)-vitamin D3 5 mcg (200 unit) capsule (Calcium 600 + D(3)) fluoxetine 20 mg capsule 20 mg PO DAILY #90 caps 12/09/24 05/19/25 Rx levothyroxine 50 mcg tablet 50 mcg PO DAILY #90 tabs 12/09/24 05/19/25 Rx losartan 100 See Rx Instructions .Route 12/09/24 05/19/25 Rx mg-hydrochlorothiazide 12.5 mg .COMPLEX #90 tabs tablet Patient hx anesthesia problems: none Family hx anesthesia problems: none Results Review: All pre-operative results and documents have been reviewed as part of the pre-operative evaluation. [facility] Past Medical History Medical History (normal spontaneous vaginal delivery) History of ectopic 1974 open salpingectomy Fracture of 5th metatarsal (~04/2022) H/O fracture of rib (~02/2016) Essential (primary) hypertension Hyperlipidemia Anxiety Hypothyroid Osteopenia Dexa - 10/14/24 Surgical History Surgical History History of breast biopsy History of toe surgery (~2014) hammer toe repair History of cataract extraction (~2013) Family History Family History Other Hypertension Social History Social History Social History: Caffeine- Smoking packs per day: 0.5 Smoking cigarettes per day: 10.0 Years smoked: 28 Smoking pack-years: 14.00 Smoking status: Former smoker Tobacco type: cigarettes Second hand tobacco smoke exposure: No Smoking end date: 09/04/98 Alcohol intake: current Alcohol use details: 1 per month Substance use: never Substance use type: does not use Lack of Transportation: No Lack of Food: Never True Current Housing: I Have Housing Concerned About Future Housing: No Difficulty Paying Gas/Electric Bills: No Difficulty Paying for Meds: No Currently Unemployed: No Education: High School Diploma/GED Difficulty w/ Childcare or Family Care: No Living arrangements: alone Occupation/Education: retired Gender identity (if verbalized by the patient): Female Spiritual care concerns: No Agree to blood products: Yes Anes - Eval Final PreProcedure Day of Procedure 05/19/25 12:55 Patient weight: overweight Heart: regular rate and rhythm Lungs: clear to auscultation Airway: Mallampati scale class II Neurological: alert and oriented Last oral intake: >/= 8 hours ASA classification: III Emergent: no Anesthetic plan: proceed Anesthesia type and monitoring: general GIVS and standard monitoring Results Review: All pre-operative results and documents have been reviewed as part of the pre-operative evaluation. Informed Consent: The patient's anesthetic plan and its attendant risks and benefits were discussed with the patient/family/POA. Questions were solicited and answers provided to the satisfaction of the patient/family/POA.
[2025-05-19] MEDS: FERRIC SUBSULFATE 8 ML SOLUTION WITH APPLICATOR TOPICAL (14:05)
[2025-05-19] MEDS: KETOROLAC 15 MG/ML VIAL (*BKC) IV PUSH (14:06)
--- NOTE | 2025-05-19 14:06 | S_PTH ---
PATIENT: Negrita Ayon LOC: [facility] U#:[id number] AGE/SX: 74/F ROOM: RE05/19/[address]: Emilie Velásquez MD : 1950 BED: DIS: 05/19/2025 SPEC #: [id number] RECD: 05/20/25 08:36 STATUS: HANNAH RENguyễn #: [id number] KATHY: 05/19/25 14:[address]: Emilie Velásquez DEPT: [facility] Surgical RECD BY: Megha Almaraz MLT, ([facility]) ENTERED: 05/20/25 08:36 SP TYPE: Surgical OTHR DR: Minerva Lim APRN Tissues: A - Endometrial Curettings Procedures: Hematoxylin and Eosin Stain Gross and Microscopic Level 4
--- NOTE | 2025-05-19 14:13 | W.PM.PROC2 ---
Procedure Note - Detailed Date of Procedure 05/19/25 Pre-op Diagnosis post menopausal bleeding Post-op Diagnosis Same Procedure Performed D&C hysteroscopy with resection of endometrial polyp Surgeon Emilie Velásquez MD Anesthesia MAC Findings The cervix is stenotic. The uterus sounds to 7cm. There was a polyp the left fundus. The remainder of the endometrium appears atrophic. Description of Procedure The patient is taken to the operating room and placed under anesthesia in the dorsal lithotomy position. She was prepped and draped in the usual sterile fashion. Arch Cape speculum was placed in the vagina and the cervix grasped on the anterior a tenaculum. The uterus is sounded to 7cm. The hysteroscope not pass the internal os. The cervix was serially dilated to a 4 Hegar. The hysteroscope was then able to be placed and using hydrodissection the endometrial cavity was entered. Due to the polyp being present, the Aveta small resection device was placed and under direct visualization the polyp was removed. The hysteroscope was then removed and upon attempting to place the smallest curette would not pass the internal os. The cervix was then dilated to a 5 Hegar with quite amount of difficulty. The tenaculum pulled through from the anterior lip. It had to be replaced. The OO sharp curette was then able to pass and the endometrium curetted until a good uterine cry was noted in all areas. The tenaculum was removed and the previous tenaculum site was bleeding requiring Monsel's for hemostasis. All instruments were then removed. Sponge, needle, and instrument counts are correct per the OR staff. The patient was awakened from anesthesia and taken to recovery in stable condition. Estimated Blood Loss 5 Drains No Packing No Pathology Yes (Endometrial shavings and curettings) Complications No immediate complications Condition Stable Disposition PACU
[2025-05-19 14:19] VITALS: BP 129/68; PULSE 62; RESP 14; O2SAT 100
[2025-05-19 14:45] VITALS: BP 150/55; PULSE 66; RESP 20
[2025-05-19 15:15] VITALS: BP 140/62; PULSE 60; RESP 20
== END 2025-05-19 15:27 | disposition home or self-care (01) ==
PROVIDERS: PCP Nurse Practitioner Family; Visit Provider Obstetrics & Gynecology Gynecology
PROC: 0U5B8ZZ Destruction of Endometrium, Via Natural or Artificial Opening Endoscopic (ICD-10-PCS; CPT 58563; principal; 2025-05-19 14:00)
DX: N84.0 Polyp of corpus uteri (principal); N88.2 Stricture and stenosis of cervix uteri; I10 Essential (primary) hypertension; E78.5 Hyperlipidemia, unspecified; E03.9 Hypothyroidism, unspecified; F41.9 Anxiety disorder, unspecified; M85.88 Other specified disorders of bone density and structure, other site; Z98.890 Other specified postprocedural states; Z87.891 Personal history of nicotine dependence
CPT/HCPCS: 58558; 88305; A9270; J1885; J2003; J2405; J2704; J3010; J7120

== ENCOUNTER 2025-05-23 15:12 | Emergency (ER) | payer MEDICARE, OTHER, SELFPAY ==
--- NOTE | ~2025-05-23 | XR_ITS ---
EXAMINATION: XR knee LT min 4V DATE: 05/23/2025 15:52 INDICATION: Left knee injury with audible pop TECHNIQUE: Anteroposterior, 2 oblique and crosstable lateral views of the left knee were obtained COMPARISON: None. FINDINGS: Alignment is normal. No fracture.. Joint spaces appear relatively preserved but joint space narrowing could be underestimated on nonweightbearing imaging. Small marginal osteophytes along the medial tibial plateau consistent with at least mild osteoarthritis. No joint effusion/layering lipohemarthrosis. Soft tissues are unremarkable. IMPRESSION: 1. At least mild osteoarthritis in medial compartment. No left knee joint effusion or acute osseous abnormality. Reviewed, dictated and finalized at location A. IMPRESSION: 1. At least mild osteoarthritis in medial compartment. No left knee joint effus ion or acute osseous abnormality.
--- NOTE | ~2025-05-23 | CT_ITS ---
EXAMINATION: CT knee LT wo con DATE: 05/23/2025 17:53 INDICATION: Left knee pain. TECHNIQUE: Computed tomography (CT) of the left knee was performed without intravenous contrast. Automated exposure control and iterative reconstruction technique were employed. The dose-length product was 474.18 mGy-cm. COMPARISON: Left knee radiographs 05/23/2025 FINDINGS: Alignment is normal. No fracture. There is mild tricompartmental osteoarthritis. There is a small knee joint effusion. IMPRESSION: 1. Mild left knee osteoarthritis. 2. Small left knee joint effusion. Reviewed, dictated and finalized at location E.
[2025-05-23 15:14] VITALS: BP 166/75; PULSE 100; RESP 16; TEMP 36.7; O2SAT 100
--- OUTSIDE RECORDS SUMMARY | 2025-05-23 15:14 | XMS_ITS | Clinical Summary ---
Author Organization [facility] Address [address] [place] [address] Care Team Providers Care Camp Boss Name Role Phone Minerva Lim NP Primary Care Provider [phone] Encounters Date Type Department Care Team Description 04/21/2025 8:52 AM CDT - 04/21/2025 11:59 PM CDT Hospital Encounter [facility] Center [address] [place] [address] Postmenopausal bleeding Discharge Disposition: Discharge to home or self care from Last 3 Months Surgical History Surgery Date Site/Laterality Comments BREAST BIOPSY 07/29/2020 Right Social History Tobacco Use Types Packs/Day Years Used Date Smoking Tobacco: Never Assessed Comments Unknown Sex and Gender Information Value Date Recorded Sex Assigned at Not on file 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 CH: MARTÍN Report ID: [id number] Reading Location: [id number] Procedure Note Dov Peralta MD - 04/28/2025 [...] Dov Peralta M.D. 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
--- OUTSIDE RECORDS SUMMARY | 2025-05-23 15:14 | XMS_ITS | Encounter Summary ---
Author Organization [facility] Address [address] [place] [address] Phone Care Team Providers Care Urban Sociologist Name Role Phone Minerva Lim APRN, CNP Primary Care Provider + Encounter Details Date Type Department Care Team (Latest Contact Info) Description 04/30/2024 Transcribe Orders [facility] Mammography [address] [place] [address] Genet Cunningham APRN, MOLDING LINE OPERATOR [address] [place] [address] Abnormal mammogram (Primary Dx) Social History Tobacco [...] unspecified documented in this encounter Care Teams Urban Sociologist Relationship Specialty Start Date End Date Minerva Lim APRN, CNP PCP - General Certified Nurse Practitioner 07/10/20 documented as of this encounter
--- OUTSIDE RECORDS SUMMARY | 2025-05-23 15:14 | XMS_ITS | Encounter Summary ---
Author Organization [facility] Address [address] [place] [address] Phone Care Team Providers Care Sliver Chopper Name Role Phone Minerva Lim APRN, CNP Primary Care Provider + Reason for Referral * Radiology Services (Routine) - Closed Specialty Diagnoses / Procedures Referred By Contac t Referred To Contact Radiology Diagnoses Abnormal mammogram Procedures [facility] BREAST LIMITED RT Warner Morataya MD [address] [address] Phone: tel: fax: Referral ID Status Reason Start Date Expiration Date Visits Re quested Visits Authorized [id number] Closed 05/14/2024 1 1 * Radiology Services (Routine) - Closed Specialty Diagnoses / Procedures Referred By Contac t Referred To Contact Radiology Diagnoses Abnormal mammogram Procedures [facility] DIAG RIGHT UNILATERAL DIGITAL W CAD W Warner Mcelroy MD [address] [address] Phone: tel: fax: Referral ID Status Reason Start Date Expiration Date Visits Re quested Visits Authorized [id number] Closed 05/14/2024 1 1 Encounter Details Date Type Department Care Team (Late st Contact Info) Description 05/14/2024 Transcribe Orders [facility] Mammography [address] [place] [phone] Warner Morataya MD [address] [phone] Abnormal mammogram (Primary Dx) Social History Tobacco [...] to exams dated: 07/19/2023, 12/28/2023, [facility] BRE[facility] TISSUE:There are scattered [...] signed by: Ary Singh M.D. ll/:07/02/2024 15:13:25 Supervisory Lifeguard(s): Violet Lee, RT(R)(M), [facility]; JAMIE Ramirez, [facility] letter sent: Birad 3 Followup Reading location: [facility] OVERALL STUDY BIRADS: Category 3: Probably Benign [...] to exams dated: 07/19/2023, 12/28/2023, and 06/27/2022 [facility]. BREAST TISSUE:There are scattered areas [...] signed by: Ary Singh M.D. ll/:07/02/2024 15:13:25 Supervisory Lifeguard(s): Violet Lee, RT(R)(M), [facility]; JAMIE Ramirez, [facility] letter sent: Birad 3 Followup Reading location: [facility] OVERALL STUDY BIRADS: Category 3: Probably Benign [...] to exams dated: 07/19/2023, 12/28/2023, and 06/27/2022 [facility]. BREAST TISSUE:There are scattered areas [...] signed by: Ary Singh M.D. ll/:07/02/2024 15:13:25 Supervisory Lifeguard(s): RT Katelin(R)(M), [facility]; JAMIE Ramirez, [facility] letter sent: Birad 3 Followup Reading location: [facility] OVERALL STUDY BIRADS: Category 3: Probably Benign [...] to exams dated: 07/19/2023, 12/28/2023, and 06/27/2022 [facility]. BREAST TISSUE:There are scattered areas [...] signed by: Ary Singh M.D. ll/:07/02/2024 15:13:25 Supervisory Lifeguard(s): Violet Lee RT(R)(M), [facility]; Park Porras RDMS OBCARLOS, [facility] letter sent: Birad 3 Followup Reading location: [facility] OVERALL STUDY BIRADS: Category 3: Probably Benign Warner Morataya MD IMG MAMMO ORDERABLES Final Result documented in this encounter Visit Diagnoses Diagnosis Abnormal mammogram- Primary Abnormal mammogram, unspecified Abnormal mammogram Abnormal mammogram, unspecified Abnormal mammogram Abnormal mammogram, unspecified documented in this encounter Care Teams Sliver Chopper Relationship Specialty Start Date End Date Minerva Lim, EDEN, CASIMIRO PCP - General Certified Nurse Practitioner 07/10/20 documented as of this encounter
--- OUTSIDE RECORDS SUMMARY | 2025-05-23 15:14 | XMS_ITS | Clinical Summary ---
Author Organization [facility] Address [address], [address] [address] Phone Care Team Providers Care Supply Person Name Role Phone Minerva Lim APRN, CASIMIRO [...] Comments Blood Pressure 142/86 09/14/2021 8:49 AM PLACEMENT OFFICER Pulse 85 09/14/2021 8:49 AM PLACEMENT OFFICER Temperature 36.9 C (98.5 F) 09/14/2021 8:49 AM PLACEMENT OFFICER Respiratory Rate 18 09/14/2021 8:49 AM PLACEMENT OFFICER Oxygen Saturation 100% 09/14/2021 8:49 AM PLACEMENT OFFICER Inhaled Oxygen Concentration - - Weight - [...] CDT Narrative 12/31/2024 12:52 PM CDT - [facility] DIAG BILATERAL DIGITAL W CAD W [...] 07/01/2024, 07/01/2024, 12/28/2023, 12/28/2023, 07/19/2023, and 06/27/2022 [facility]. BREAST TISSUE:There are scattered areas of [...] signed by: Ary Singh M.D. ll/:12/31/2024 11:04:46 Executive Vice President Business Development(s): Geno Benites, RT(R)(M), [facility]; ANSHU Block, [facility] letter sent: Birad 3 Followup [...] copy. Current study was also evaluated with UGED version 7.2. 2D digital mammographic views, as well as 3D digital tomosynthesis were performed in the CC and MLO projections. CLINICAL: Patient returns for a 1 year follow-up right breast. Due for annual. Patient has no complaints. No personal history of cancer. Paternal aunt had breast cancer. COMPARISONS: Comparison is made to exams dated: 07/01/2024, 07/01/2024, 12/28/2023, 12/28/2023, 07/19/2023, and 06/27/2022 [facility]. BREAST TISSUE:There are scattered areas [...] signed by: Ary Singh M.D. ll/:12/31/2024 11:04:46 Executive Vice President Business Development(s): RT Skylar(R)(M), [facility]; ANSHU Block, [facility] letter sent: Birad 3 Followup Reading location: [facility] OVERALL STUDY BIRADS: Category 3: Probably Benign Warner Morataya MD IMG MAMMO ORDERABLES Final Result from Last 3 Months or Most Recently Relevant to Health Maintenance Insurance MEDICARE [employer] MEDICARE SUP Care Teams Supply Person Relationship Specialty Start Date End Date Minerva Lim, EDEN, [facility] PCP - General Certified Nurse Practitioner 07/10/20
--- NOTE | 2025-05-23 17:32 | ED_ITS ---
HPI - General Adult General Chief complaint: Extremity Injury, Lower <Ronald Monahan MD - Last Filed: 05/24/25 07:00> Stated complaint: left leg injury <Ronald Monahan MD - Last Filed: 05/24/25 07:00> Time Seen by Provider: 05/23/25 16:47 <Ronald Monahan MD - Last Filed: 05/24/25 07:00> History of Present Illness HPI narrative: 74-year-old female presents emergency department for evaluation for left knee pain. Patient reports she was walking upstairs when she felt a pop in her left knee. Patient describes posterior knee pain that is worsened with weight- bearing. <Ronald Monahan MD - Last Filed: 05/24/25 07:00> Related Data Home medications: Home Medications ?Medication ?Instructions ?Recorded ?Confirmed ?Last Taken ?Type cholecalciferol (vitamin D3) 50 4,000 unit PO DAILY 05/19/25 05/16/25 History mcg (2,000 unit) chewable tablet lutein 20 mg tablet 20 mg PO DAILY 11/14/1901/2607/21/24 History multivitamin 1 tablet PO DAILY 11/14/19 0 05/19/25 05/16/25 History vitamin E (dl, acetate) 180 mg 400 unit PO DAILY 11/1305/19/25 05/16/25 History (400 unit) capsule <Ronald Monahan MD - Last Filed: 05/24/25 07:00> Allergies/adverse reactions: Allergies Allergy/AdvReac Type Severity Reaction Status Date / Time azithromycin Allergy Mild thrush Verified 05/19/25 12:34 Sulfa (Sulfonamide Allergy Mild hives Verified 05/19/25 12:34 Antibiotics) sulfanilamide Allergy Mild hives Verified 05/19/25 12:34 <Ronald Monahan MD - Last Filed: 05/24/25 07:00> [facility] Past Medical History Medical History: Medical History (normal spontaneous vaginal delivery) History of ectopic 1974 open salpingectomy Fracture of 5th metatarsal (~04/2022) H/O fracture of rib (~02/2016) Essential (primary) hypertension Hyperlipidemia Anxiety Hypothyroid Osteopenia Dexa - 10/14/24 <Ronald Monahan MD - Last Filed: 05/24/25 07:00> Surgical History Surgical History: Surgical History History of breast biopsy History of toe surgery (~2014) hammer toe repair History of cataract extraction (~2013) <Ronald Monahan MD - Last Filed: 05/24/25 07:00> Family History Family History: Family History Other Hypertension <Ronald Monahan MD - Last Filed: 05/24/25 07:00> Social History Social History: Social History Social History: Caffeine- Smoking packs per day: 0.5 Smoking cigarettes per day: 10.0 Years smoked: 28 Smoking pack-years: 14.00 Smoking status: Former smoker Tobacco type: cigarettes Second hand tobacco smoke exposure: No Smoking end date: 09/04/98 Alcohol intake: current Alcohol use details: 1 per month Substance use: never Substance use type: does not use Lack of Transportation: No Lack of Food: Never True Current Housing: I Have Housing Concerned About Future Housing: No Difficulty Paying Gas/Electric Bills: No Difficulty Paying for Meds: No Currently Unemployed: No Education: High School Diploma/GED Difficulty w/ Childcare or Family Care: No Living arrangements: alone Occupation/Education: retired Gender identity (if verbalized by the patient): Female Spiritual care concerns: No Agree to blood products: Yes <Ronald Monahan MD - Last Filed: 05/24/25 07:00> Course Vital Signs Vital signs: Vital Signs Temperature 98.0 F 05/23/25 15:14 Pulse Rate 100 05/23/25 15:14 Respiratory Rate 16 05/23/25 15:14 Blood Pressure 166/75 H 05/23/25 15:14 Pulse Oximetry 100 05/23/25 15:14 Oxygen Delivery Room Air 05/23/25 15:14 Temperature 97.8 F 05/23/25 21:52 Pulse Rate 88 05/23/25 21:52 Respiratory Rate 22 H 05/23/25 21:52 Blood Pressure 140/80 05/23/25 21:52 Pulse Oximetry 99 05/23/25 21:52 Oxygen Delivery Room Air 05/23/25 15:14 <Ronald Monahan MD - Last Filed: 05/24/25 07:00> Vital Signs Temperature 98.0 F 05/23/25 15:14 Pulse Rate 100 05/23/25 15:14 Respiratory Rate 16 05/23/25 15:14 Blood Pressure 166/75 H 05/23/25 15:14 Pulse Oximetry 100 05/23/25 15:14 Oxygen Delivery Room Air 05/23/25 15:14 Temperature 97.8 F 05/23/25 21:52 Pulse Rate 88 05/23/25 21:52 Respiratory Rate 22 H 05/23/25 21:52 Blood Pressure 140/80 05/23/25 21:52 Pulse Oximetry 99 05/23/25 21:52 Oxygen Delivery Room Air 05/23/25 15:14 <Beverly Bhakta MD - Last Filed: 05/23/25 21:12> Medical Decision Making MDM Narrative Medical decision making narrative: Patient presents to the ER with left knee pain after a hearing a pop, CT of knee does not show acute osseous pathology. Patient placed in knee immobilizer, was able to ambulate without issue and feels comfortable going home with outpatient follow-up to Orthopedics. Return precautions provided <Beverly Bhakta MD - Last Filed: 05/23/25 21:12> Vital Signs Vital Signs: Vital Signs Temperature 98.0 F 05/23/25 15:14 Pulse Rate 100 05/23/25 15:14 Respiratory Rate 16 05/23/25 15:14 Blood Pressure 166/75 H 05/23/25 15:14 Pulse Oximetry 100 05/23/25 15:14 Oxygen Delivery Room Air 05/23/25 15:14 Temperature 97.8 F 05/23/25 21:52 Pulse Rate 88 05/23/25 21:52 Respiratory Rate 22 H 05/23/25 21:52 Blood Pressure 140/80 05/23/25 21:52 Pulse Oximetry 99 05/23/25 21:52 Oxygen Delivery Room Air 05/23/25 15:14 <Ronald Monahan MD - Last Filed: 05/24/25 07:00> Vital Signs Temperature 98.0 F 05/23/25 15:14 Pulse Rate 100 05/23/25 15:14 Respiratory Rate 16 05/23/25 15:14 Blood Pressure 166/75 H 05/23/25 15:14 Pulse Oximetry 100 05/23/25 15:14 Oxygen Delivery Room Air 05/23/25 15:14 Temperature 97.8 F 05/23/25 21:52 Pulse Rate 88 05/23/25 21:52 Respiratory Rate 22 H 05/23/25 21:52 Blood Pressure 140/80 05/23/25 21:52 Pulse Oximetry 99 05/23/25 21:52 Oxygen Delivery Room Air 05/23/25 15:14 <Beverly Bhakta MD - Last Filed: 05/23/25 21:12> Discharge Plan Discharge Clinical Impression: Acute internal derangement of left knee <Ronald Monahan MD - Last Filed: 05/24/25 07:00> Patient Disposition: Home <Ronald Monahan MD - Last Filed: 05/24/25 07:00> Condition: Stable <Ronald Monahan MD - Last Filed: 05/24/25 07:00> Instructions: Antibiotic Form, Knee Pain (ED), Knee Immobilizer (ED) <Ronald Monahan MD - Last Filed: 05/24/25 07:00> Additional Instructions: Tylenol for pain control. Knee immobilizer as directed. Walker for limited weight-bearing. Have close follow-up with Orthopedics. <Ronald Monahan MD - Last Filed: 05/24/25 07:00> Patient Language: Cambodian <Ronald Monahan MD - Last Filed: 05/24/25 07:00> Prescriptions: No Action multivitamin Tablet 1 tablet PO DAILY vitamin E (dl, acetate) 400 unit capsule 400 unit PO DAILY lutein 20 mg tablet 20 mg PO DAILY Rx Instructions: give with meal/snack cholecalciferol (vitamin D3) 2,000 unit tablet,chewable 4,000 unit PO DAILY losartan-hydrochlorothiazide 100-12.5 mg tablet See Rx Instructions .ROUTE .COMPLEX Qty: 90 1RF Dose Instruction: Take 1 tablet by mouth once daily Rx Instructions: Take 1 tablet by mouth once daily levothyroxine 50 mcg tablet 50 mcg PO DAILY Qty: 90 1RF fluoxetine 20 mg capsule 20 mg PO DAILY Qty: 90 1RF amlodipine 5 mg tablet 5 mg PO DAILY Qty: 90 1RF calcium carbonate-vitamin D3 [Calcium 600 + D(3)] 600 mg-5 mcg (200 unit) capsule 1 cap PO BID Qty: 60 0RF alprazolam 0.25 mg tablet 0.25 mg PO DAILY PRN (Reason: anxiety) Qty: 5 0RF Patient Comments: Just for flying <Ronald Monahan MD - Last Filed: 05/24/25 07:00> Follow-up/Referrals: Jef Pineda MD [Physician, Orthopedics] Minerva Lim NP [Primary Care Provider, Family Practice] <Ronald Monahan MD - Last Filed: 05/24/25 07:00>
--- OUTSIDE RECORDS SUMMARY | 2025-05-23 17:41 | XMS_ITS | Clinical Summary ---
Author Organization [facility] Address [address] [place] [address] Care Team Providers Care Kiln Furniture Saw Tender Name Role Phone Unavailable Primary Care Provider Unavailabl e Source Comments [facility],non-owned Affiliates and Associated Physician Practices is amultiple site organization consisting of ambulatory clinics and hospital sitesin [place], [place], [place] and [place]. This disclosure is being madepursuant to the Care Everywhere program and may not contain all information available regarding this patient. Last updated 18.[facility] Social History Tobacco Use Types Packs/Day Years [...] yrs (1 - 1-dose 75+ series) 2023 DEPRESSION SCREENING 09/04/2024 COVID-19 VACCINE (1 - 2023-2 5 season) 2025 INFLUENZA VACCINE (#1) 2025 HEPATITIS B VACCINE [...] age to complete this topic Insurance MEDICARE [facility] [place] [address] [facility]
--- OUTSIDE RECORDS SUMMARY | 2025-05-23 17:41 | XMS_ITS | Encounter Summary ---
Author Organization [facility] Address [address] [place] [address] Phone Care Team Providers Care Safety Associate Name Role Phone Minerva Lim APRN, CNP Primary Care Provider + Reason for Referral * Radiology Services (Routine) - Closed Specialty Diagnoses / Procedures Referred By Contac t Referred To Contact Radiology Diagnoses Abnormal mammogram Procedures [facility] BREAST LIMITED RT Warner Morataya MD [address] [address] Phone: tel: fax: Referral ID Status Reason Start Date Expiration Date Visits Re quested Visits Authorized [id number] Closed 05/14/2024 1 1 * Radiology Services (Routine) - Closed Specialty Diagnoses / Procedures Referred By Contac t Referred To Contact Radiology Diagnoses Abnormal mammogram Procedures [facility] DIAG RIGHT UNILATERAL DIGITAL W CAD W Warner Mcelroy MD [address] [address] Phone: tel: fax: Referral ID Status Reason Start Date Expiration Date Visits Re quested Visits Authorized [id number] Closed 05/14/2024 1 1 Encounter Details Date Type Department Care Team (Late st Contact Info) Description 05/14/2024 Transcribe Orders [facility] Mammography [address] [place] [phone] Warner Morataya MD [address] [phone] Abnormal mammogram (Primary Dx) Social History Tobacco [...] to exams dated: 07/19/2023, 12/28/2023, and [facility] BREAST TISSUE:There are scattered areas [...] signed by: Ary Singh M.D. ll/:07/02/2024 15:13:25 Tire Room Supervisor(s): Violte Lee, RT(R)(M), [facility]; JAMIE Ramirez, [facility] letter sent: Birad 3 Followup Reading [...] to exams dated: 07/19/2023, 12/28/2023, and 06/27/2022 [facility]. BREAST TISSUE:There are scattered areas of [...] signed by: Ary Singh M.D. ll/:07/02/2024 15:13:25 Tire Room Supervisor(s): Violet Lee, RT(R)(M), [facility]; JAMIE Ramirez, [facility] letter sent: Birad 3 Followup Reading [...] to exams dated: 07/19/2023, 12/28/2023, and 06/27/2022 [facility]. BREAST TISSUE:There are scattered areas of [...] signed by: Ary Singh M.D. ll/:07/02/2024 15:13:25 Tire Room Supervisor(s): RT Katelin(R)(M), [facility]; JAMIE Ramirez, [facility] letter sent: Birad 3 Followup Reading [...] to exams dated: 07/19/2023, 12/28/2023, and 06/27/2022 [facility]. BREAST TISSUE:There are scattered areas of [...] signed by: Ary Singh M.D. ll/:07/02/2024 15:13:25 Tire Room Supervisor(s): Violet Lee RT(R)(M), [facility]; Park Porras RDMS OBCARLOS, [facility] letter sent: Birad 3 Followup Reading location: [facility] OVERALL STUDY BIRADS: Category 3: Probably Benign Warner Morataya MD IMG MAMMO ORDERABLES Final Result documented in this encounter Visit Diagnoses Diagnosis Abnormal mammogram- Primary Abnormal mammogram, unspecified Abnormal mammogram Abnormal mammogram, unspecified Abnormal mammogram Abnormal mammogram, unspecified documented in this encounter Care Teams Safety Associate Relationship Specialty Start Date End Date Minerva Lim, EDEN, CASIMIRO PCP - General Certified Nurse Practitioner 07/10/20 documented as of this encounter
--- OUTSIDE RECORDS SUMMARY | 2025-05-23 17:41 | XMS_ITS | Encounter Summary ---
Author Organization [facility] Address [address] [place] [address] Phone Care Team Providers Care Commanding Officer Motorized Squad Name Role Phone Minerva Lim APRN, CNP Primary Care Provider + Encounter Details Date Type Department Care Team (Latest Contact Info) Description 04/30/2024 Transcribe Orders [facility] Mammography [address] [place] [phone] Genet Cunningham APRN, VACUUM CASTER [address] [place] [address] Abnormal mammogram (Primary Dx) Social History Tobacco [...] unspecified documented in this encounter Care Teams Commanding Officer Motorized Squad Relationship Specialty Start Date End Date Minerva Lim APRN, CNP PCP - General Certified Nurse Practitioner 07/10/20 documented as of this encounter
--- OUTSIDE RECORDS SUMMARY | 2025-05-23 17:41 | XMS_ITS | Clinical Summary ---
Author Organization [facility] Address [address], [address] [address] Phone Care Team Providers Care Filter Pulp Washer Name Role Phone Minerva Lim APRN, CASIMIRO [...] Comments Blood Pressure 142/86 09/14/2021 8:49 AM ELECTRICAL ENGINEERING MANAGER Pulse 85 09/14/2021 8:49 AM ELECTRICAL ENGINEERING MANAGER Temperature 36.9 C (98.5 F) 09/14/2021 8:49 AM ELECTRICAL ENGINEERING MANAGER Respiratory Rate 18 09/14/2021 8:49 AM ELECTRICAL ENGINEERING MANAGER Oxygen Saturation 100% 09/14/2021 8:49 AM ELECTRICAL ENGINEERING MANAGER Inhaled Oxygen Concentration - - Weight - [...] CDT Narrative 12/31/2024 12:52 PM CDT - [facility] DIAG BILATERAL DIGITAL W CAD W [place] [...] 07/01/2024, 12/28/2023, 12/28/2023, 07/19/2023, and 06/27/2022 [facility]. BREAST TISSUE:There are scattered areas [...] signed by: Ary Singh M.D. ll/:12/31/2024 11:04:46 Paint Technician(s): Geno Benites, RT(R)(M), [facility]; ANSHU Block, [facility] letter sent: Birad 3 Followup Reading [...] copy. Current study was also evaluated with [employer]D version 7.2. 2D digital mammographic views, as well as 3D digital tomosynthesis were performed in the CC and MLO projections. CLINICAL: Patient returns for a 1 year follow-up right breast. Due for annual. Patient has no complaints. No personal history of cancer. Paternal aunt had breast cancer. COMPARISONS: Comparison is made to exams dated: 07/01/2024, 07/01/2024, 12/28/2023, 12/28/2023, 07/19/2023, and 06/27/[address] [facility]. BREAST TISSUE:There are scattered areas of [...] signed by: Ary Singh M.D. ll/:12/31/2024 11:04:46 Paint Technician(s): RT Skylar(R)(M), [facility]; ANSHU Block, [facility] letter sent: Birad 3 Followup Reading location: [facility] OVERALL STUDY BIRADS: Category 3: Probably Benign Warner Morataya MD IMG MAMMO ORDERABLES Final Result from Last 3 Months or Most Recently Relevant to Health Maintenance Insurance MEDICARE [employer]ICARE [employer] Care Teams Filter Pulp Washer Relationship Specialty Start Date End Date Minerva Lim, EDEN, MANAGEMENT ASSOCIATE PCP - General Certified Nurse Practitioner 07/10/20
--- OUTSIDE RECORDS SUMMARY | 2025-05-23 17:41 | XMS_ITS | Clinical Summary ---
Author Organization [facility] Address [address] [place] [address] Care Team Providers Care Dining Host Name Role Phone Minerva Lim NP Primary Care Provider [phone] Encounters Date Type Department Care Team Description 04/21/2025 8:52 AM CDT - 04/21/2025 11:59 PM CDT Hospital Encounter [facility] [address] [place] [address] Postmenopausal bleeding Discharge Disposition: Discharge to home or self care from Last 3 Months Surgical History Surgery Date Site/Laterality Comments BREAST BIOPSY 07/29/2020 Right Social History Tobacco Use Types Packs/Day Years Used Date Smoking Tobacco: Never Assessed Comments Unknown Sex and Gender Information Value Date Recorded Sex Assigned at Not on file Legal Sex 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 CH: MARTÍN Report ID: [id number] Reading Location: [id number] Procedure Note Dov Peralta MD - 04/28/2025 [...] Dov Peralta M.D. CH: MARTÍN Report ID: [id number] Reading Location: [id number] Emilie Velásquez MD [facility] US PROCEDURES Final Result from Last 3 Months Insurance MEDICARE [facility] Advance Directives For more information, please contact: [phone] Documents on File Type Date Recorded Patient Shoe Salesman Expl anation ADVANCE DIRECTIVE 04/22/2014 12:00 AM JERSON GRIER WILL Care Teams Dining Host Relationship Specialty Start Date End Date Minerva Lim NP [address] [place] [address] PCP - General Family Medicine 04/10/25
[2025-05-23] MEDS: HYDROcodone/acetaminophen (*CRX) 5-325 MG TABLET 1 TAB PO (19:41)
[2025-05-23 21:52] VITALS: BP 140/80; PULSE 88; RESP 22; TEMP 36.6; O2SAT 99
== END 2025-05-23 21:54 | disposition home or self-care (01) ==
PROVIDERS: Emergency Provider Emergency Medicine; PCP Nurse Practitioner Family
DX: M23.92 Unspecified internal derangement of left knee (principal); I10 Essential (primary) hypertension; E78.5 Hyperlipidemia, unspecified; E03.9 Hypothyroidism, unspecified; M85.80 Other specified disorders of bone density and structure, unspecified site; F41.9 Anxiety disorder, unspecified; Z90.79 Acquired absence of other genital organ(s); Z98.49 Cataract extraction status, unspecified eye; Z87.891 Personal history of nicotine dependence; M17.12 Unilateral primary osteoarthritis, left knee
CPT/HCPCS: 73564; 73700; 99284; A9270; L0140

== ENCOUNTER 2025-06-20 08:48 | Outpatient (CLI) | payer MEDICARE, OTHER, SELFPAY ==
--- OUTSIDE RECORDS SUMMARY | 2025-06-19 09:15 | XMS_ITS | Encounter Summary ---
Author Organization [facility] Address [address] [place] [address] Care Team Providers Care Interventional Tech Name Role Phone Minerva Lim NP Primary Care Provider [phone] Reason for Visit * Reason Comments PT Treatment * Consultation (Routine) - Authorized Specialty Diagnoses / Procedures Referred By Contannia t Referred To Contact Physical Therapy Diagnoses Strain of unspecified muscle(s) and tendon(s) at lower leg level, left leg, sequela Jef Pineda MD [address] [address] Phone: tel: fax: [facility] [address] [place] [address] Phone: tel: fax: Referral ID Status Reason Start Date Expiration Date Visits Requested Visits Authorized [id number] Authorized Evaluate and Treat 05/27/2025 06/26/2026 99 99 Encounter Details Date Type Department Care Team (Late st Contact Info) Description 06/19/2025 9:15 AM CDT Therapy [facility] [place] [address] Aimee Mcdowell, PT Strain of unspecified muscle(s) and tendon(s) at lower leg level, left leg, sequela (Primary Dx) Social History Tobacco Use Types Packs/Day Years Used Date Smoking Tobacco: Never Assessed Comments Unknown Sex and Gender Information Value Date Recorded Sex Assigned at Not on file Legal Sex Female 1:57 AM SHUCKER Gender Identity Not on file Sexual Orientation Not on file documented as of this encounter Progress Notes * Aimee Mcdowell, PT - 06/19/2025 9:15 AM CDT PT Daily Treatment Note 06/19/2025 Negrita Ayon 1950 Subjective : Negrita reports feeling fine today. She denies pain. She notes feeling much better overall, but still needing to be cautious with L leg. She notes wanting to focus on strengthening activities. Pain: denies Objective : See treatment provided. Treatment Provided: Nustep x 8 min, seat @ 8 Calf stretching @ rockerboard Rockerboard Heel raises x 15 Hip abduction x 15 Marching x 15 Romberg on foam, EO and EC Step ups, forward x 15 Step ups, lateral x 15 Seated LAQ 2# x 15 Seated hamstring curls, green TB x 15 HEP: Exercises - Seated Ankle Alphabet - 2 x daily - 1 sets - 1 reps - Seated Heel Toe Raises - 2 x daily - 1 sets - 10-15 reps - 3 seconds hold - Long Sitting Calf Stretch with Strap - 2-3 x daily - 1 sets - 3-4 reps - 20-30 sec hold Added 06/19: Standing heel raises and marching Assessment: Patient tolerates new exercises well today. Added stepper, basic LE stretching and strengthening activities today. She is very motivated to improve. Plan: Continue PT POC. Progress balance and strength. Start Time: 914 End Time: 1000 Aimee Mcdowell PT, DPT documented in this encounter Plan of Treatment Not on file documented as of this encounter Visit Diagnoses Diagnosis Strain of unspecified muscle(s) and tendon(s) at lower leg level, left leg, sequela- Primary documented in this encounter Care Teams Interventional Tech Relationship Specialty Start Date End Date Minerva Lim NP [address] [place] [address] PCP - General Family Medicine 04/10/25 documented as of this encounter
--- OUTSIDE RECORDS SUMMARY | 2025-06-20 09:03 | XMS_ITS | Clinical Summary ---
Author Organization [facility] Address [address] [place] [address] Care Team Providers Care Bindery Machine Tender Name Role Phone Minerva Lim NP Primary Care Provider [phone] Allergies No known active allergies Medications No known medications Active Problems No known active problems Encounters Date Type Department Care Team Description 06/19/2025 9:15 AM CDT Therapy [facility] Physical Therapy [place] [address] Aimee Mcdowell, PT Strain of unspecified muscle(s) and tendon(s) at lower leg level, left leg, sequela (Primary Dx) 06/16/2025 9:15 AM CDT Therapy [facility] Physical Therapy [address] [place] [address] Bina Pettit, PT Strain of unspecified muscle(s) and tendon(s) at lower leg level, left leg, sequela (Primary Dx) 06/16/2025 Plan of Care Documentation [facility] Physical Therapy [address] [place] [address] 06/13/2025 Telephone [facility] Physical Therapy [address] [place] [address] Bina Pettit, PT Appointment Reminder Call (Called pt to confirm appt on 06/16. 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 CH: MARTÍN Report ID: [id number] Reading Location: [id number] Procedure Note Dov Peralta MD - 04/28/2025 [...] Dov Peralta M.D. CH: MARTÍN Report ID: [id number] Reading Location: [place] [address] us Emilie Velásquez MD IMG US PROCEDURES Final Result from Last 3 Months Insurance MEDICARE [facility] [place], [place] [id number] Advance Directives For more information, please contact: [phone] Documents on File Type Date Recorded Patient Bakery Clerk Expl anation ADVANCE DIRECTIVE 04/22/2014 12:00 AM JERSON GRIER WILL Care Teams Bindery Machine Tender Relationship Specialty Start Date End Date Minerva Lim NP [address] [place] [address] PCP - General Family Medicine 04/10/25
--- OUTSIDE RECORDS SUMMARY | 2025-06-20 09:03 | XMS_ITS | Clinical Summary ---
Author Organization [facility] Address [address] [place] [address] Care Team Providers Care Case Finisher Name Role Phone Unavailable Primary Care Provider Unavailabl e Source Comments [facility],non-owned Affiliates and Associated Physician Practices is amultiple site organization consisting of ambulatory clinics and hospital sitesin [place], [place], [place] and [place]. This disclosure is being madepursuant to the Care Everywhere program and may not contain all information available regarding this patient. Last updated 18.[facility] Social History Tobacco Use Types Packs/Day Years [...] series) 2023 DEPRESSION SCREENING 09/04/2024 COVID-19 VACCINE ( - 2023-2 5 season) 2025 INFLUENZA VACCINE [...] patient's age to complete this topic Insurance [facility] Address: [facility] [address] [place] [address] MEDICARE [facility] SELF PAY NO INSURANCE Member Subscriber Plan / Payer (Ef fective for All Dates) Name:Joshua Kenny Member ID:Not on file Relation to Subscriber:Not on file Name:JOSHUA KENNY Subscriber ID:Not on file (Home) Address: [address] [place] [id number] Payer ID:Not on file Group ID:Not on file Type:Self Pay Address: [place], [place]
--- OUTSIDE RECORDS SUMMARY | 2025-06-20 09:03 | XMS_ITS | Encounter Summary ---
Author Organization [facility] Address [address] [place] [address] Phone Care Team Providers Care Linen Tech Name Role Phone Minerva Lim APRN, CNP Primary Care Provider + Encounter Details Date Type Department Care Team (Latest Contact Info) Description 04/30/2024 Transcribe Orders [facility] Mammography [address] [place] [address] Genet Cunningham APRN, [employer] [address] [place] [address] Abnormal mammogram (Primary Dx) Social History Tobacco [...] unspecified documented in this encounter Care Teams Linen Tech Relationship Specialty Start Date End Date Minerva Lim APRN, CNP PCP - General Certified Nurse Practitioner 07/10/20 documented as of this encounter
--- OUTSIDE RECORDS SUMMARY | 2025-06-20 09:03 | XMS_ITS | Clinical Summary ---
Author Organization [facility] Address [address], [address] [address] Phone Care Team Providers Care Manager Paper Name Role Phone Minerva Lim APRN, CASIMIRO [...] Comments Blood Pressure 142/86 09/14/2021 8:49 AM RIVER RAFTING GUIDE Pulse 85 09/14/2021 8:49 AM RIVER RAFTING GUIDE Temperature 36.9 C (98.5 F) 09/14/2021 8:49 AM RIVER RAFTING GUIDE Respiratory Rate 18 09/14/2021 8:49 AM RIVER RAFTING GUIDE Oxygen Saturation 100% 09/14/2021 8:49 AM RIVER RAFTING GUIDE Inhaled Oxygen Concentration - - Weight - - Height - - Body Mass Index - - Plan of Treatment Health Maintenance Due Date Last Done Comments DEXA Bone Density 1950 Hepatitis C Virus (HCV) Screening 1950 Medicare Initial AWV G0438 08/04/2014 Zoster Immunization (2 of 3) 07/09/2017 05/14/2017 [...] CDT Narrative 12/31/2024 12:52 PM CDT - [facility] DIAG BILATERAL DIGITAL W CAD [facility] [place] - [facility] US BREAST LIMITED RT BILATERAL DIGITAL DIAGNOSTIC MAMMOGRAM 3D/2D WITH CAD WITH MEDIOLATERAL OBLIQUE CRANIOCAUDAL AND RIGHT ULTRASOUND: 12/31/2024 The study was acquired using digital technology and interpreted from soft copy. Current study was also evaluated with [employer] version 7.2. 2D digital mammographic views, as well as 3D digital tomosynthesis were performed in the CC and MLO projections. CLINICAL: Patient returns for a 1 year follow-up right breast. Due for annual. Patient has no complaints. No personal history of cancer. Paternal aunt had breast cancer. COMPARISONS: Comparison is made to exams dated: 07/01/2024, 07/01/2024, 12/28/2023, 12/28/2023, 07/19/2023, and 06/27/2022 [facility]. BREAST TISSUE:There are scattered areas of fibroglandular [...] signed by: Ary Singh M.D. ll/:12/31/2024 11:04:46 Fishing Tackle Repairer(s): Geno Benites, RT(R)(M), [facility]; ANSHU Block, [facility] letter sent: Birad 3 Followup Reading location: [facility] OVERALL STUDY BIRADS: Category 3: Probably Benign Procedure Note Ary Singh MD - 12/31/2024 - [facility] DIAG BILATERAL DIGITAL W CAD W [place] - [facility] US BREAST LIMITED RT BILATERAL DIGITAL DIAGNOSTIC MAMMOGRAM 3D/2D WITH CAD WITH MEDIOLATERAL OBLIQUE CRANIOCAUDAL AND RIGHT ULTRASOUND: 12/31/2024 The study was acquired using digital technology and interpreted from soft copy. Current study was also evaluated with [employer] version 7.2. 2D digital mammographic views, as well as 3D digital tomosynthesis were performed in the CC and MLO projections. CLINICAL: Patient returns for a 1 year follow-up right breast. Due for annual. Patient has no complaints. No personal history of cancer. Paternal aunt had breast cancer. COMPARISONS: Comparison is made to exams dated: 07/01/2024, 07/01/2024, 12/28/2023, 12/28/2023, 07/19/2023, and 06/27/2022 [facility]. BREAST TISSUE:There are scattered areas [...] signed by: Ary Singh M.D. ll/:12/31/2024 11:04:46 Fishing Tackle Repairer(s): RT Skylar(R)(M), [facility]; ANSHU Block, [facility] letter sent: Birad 3 Followup Reading location: [facility] OVERALL STUDY BIRADS: Category 3: Probably Benign Warner Morataya MD IMG MAMMO ORDERABLES Final Result from Last 3 Months or Most Recently Relevant to Health Maintenance Insurance MEDICARE [employer] MEDICARE SUP Care Teams Manager Paper Relationship Specialty Start Date End Date Minerva Lim APRN, ALLOCATIONS CLERK PCP - General Certified Nurse Practitioner 07/10/20
--- OUTSIDE RECORDS SUMMARY | 2025-06-20 09:03 | XMS_ITS | Encounter Summary ---
Author Organization [facility] Address [address] [place] [address] Phone Care Team Providers Care Superintendent Car Construction Name Role Phone Minerva Lim APRN, CNP Primary Care Provider + Reason for Referral * Radiology Services (Routine) - Closed Specialty Diagnoses / Procedures Referred By Contac t Referred To Contact Radiology Diagnoses Abnormal mammogram Procedures [facility] BREAST LIMITED RT Warner Morataya MD [address] [address] Phone: tel: fax: Referral ID Status Reason Start Date Expiration Date Visits Re quested Visits Authorized [id number] Closed 05/14/2024 1 1 * Radiology Services (Routine) - Closed Specialty Diagnoses / Procedures Referred By Contac t Referred To Contact Radiology Diagnoses Abnormal mammogram Procedures [facility] DIAG RIGHT UNILATERAL DIGITAL W CAD W Warner Mcelroy MD [address] [address] Phone: tel: fax: Referral ID Status Reason Start Date Expiration Date Visits Re quested Visits Authorized [id number] Closed 05/14/2024 1 1 Encounter Details Date Type Department Care Team (Late st Contact Info) Description 05/14/2024 Transcribe Orders [facility] M[facility]ography [address] [place] [phone] Warner Morataya MD [address] [phone] Abnormal mammogram (Primary Dx) Social History Tobacco [...] dated: 07/19/2023, 12/28/2023, and [facility]20[facility]. BREAST TISSUE:There are scattered areas of fibroglandular [...] signed by: Ary Singh M.D. ll/:07/02/2024 15:13:25 Cook House Supervisor(s): Violet Lee, RT(R)(M), [facility]; JAMIE Ramirez, [facility] letter sent: Birad 3 Followup Reading location: [facility] OVERALL STUDY BIRADS: Category 3: Probably [...] to exams dated: 07/19/2023, 12/28/2023, and 06/27/2022 [facility]. BREAST TISSUE:There are scattered areas [...] signed by: Ary Singh M.D. ll/:07/02/2024 15:13:25 [employer] Supervisor(s): Violet Lee, RT(R)(M), [facility]; JAMIE Ramirez, [facility] letter sent: Birad 3 Followup Reading location: [facility] OVERALL STUDY BIRADS: Category 3: Probably [...] to exams dated: 07/19/2023, 12/28/2023, and 06/27/2022 [facility]. BREAST TISSUE:There are scattered areas [...] signed by: Ary Singh M.D. ll/:07/02/2024 15:13:25 [employer] Supervisor(s): RT Katelin(R)(M), [facility]; JAMIE Ramirez, [facility] letter sent: Birad 3 Followup Reading location: [facility] OVERALL STUDY BIRADS: Category 3: Probably [...] to exams dated: 07/19/2023, 12/28/2023, and 06/27/2022 [facility]. BREAST TISSUE:There are scattered areas [...] signed by: Ary Singh M.D. ll/:07/02/2024 15:13:25 [place] Supervisor(s): Violet Lee RT(R)(M), [facility]; Park Porras RDMS OBCARLOS, [facility] letter sent: Birad 3 Followup Reading location: [facility] OVERALL STUDY BIRADS: Category 3: Probably Benign Warner Morataya MD IMG MAMMO ORDERABLES Final Result documented in this encounter Visit Diagnoses Diagnosis Abnormal mammogram- Primary Abnormal mammogram, unspecified Abnormal mammogram Abnormal mammogram, unspecified Abnormal mammogram Abnormal mammogram, unspecified documented in this encounter Care Teams Superintendent Car Construction Relationship Specialty Start Date End Date Minerva Lim, EDEN, CASIMIRO PCP - General Certified Nurse Practitioner 07/10/20 documented as of this encounter
[2025-06-20 12:46] LABS: Hematocrit 38.8 % (37.0-47.0); Hemoglobin 11.8 g/dL (12.0-15.0); Immature Granulocyte Percent A 0.2 % (0-0.5); Lymphocytes Absolute Auto 1.87 K/mm3 (0.9-3.2); Mean Corpuscular HGB Conc 30.4 g/dl (32-36); Mean Corpuscular Hemoglobin 24.9 pg (26-34); Mean Corpuscular Volume 82.0 fl (80-100); Nucleated Red Blood Cells Absolute Auto 0.000 K/mm3 (0.0-0.012); Nucleated Red Blood Cells Perc 0.0 % (0.0-0.2); Platelet Count Result 282 k/mm3 (150-375); Red Blood Count 4.73 M/mm3 (4.2-5.4); White Blood Count 4.6 K/mm3 (4.5-10.0)
[2025-06-20 13:05] LABS: Alanine Aminotransferase 26 U/L (6-35); Albumin Level 4.2 g/dL (3.5-5.1); Alkaline Phosphatase 132 U/L (38-126); Anion Gap 8 mmol/L (4-12); Aspartate Amino Transferase 44 U/L (14-36); Bilirubin,Total 1.0 mg/dL (0.2-1.3); Blood Urea Nitrogen 18 mg/dL (7-17); Calcium 9.5 mg/dL (8.4-10.2); Carbon Dioxide 28 mmol/L (22-30); Chloride 103 mmol/L (98-107); Cholesterol 194 mg/dL (0-200); Estimated Glomerular Filt Rate 57; Glucose 89 mg/dL (65-110); HDL Direct 52 mg/dL; Potassium 4.3 mmol/L (3.4-5.0); Sodium 139 mmol/L (137-145); Total Protein 7.3 g/dL (6.3-8.2); Triglycerides 91 mg/dL (<150)
[2025-06-20 13:26] LABS: Thyroid Stimulating Hormone Reflex 0.956 uIU/mL (0.465-4.68)
[2025-06-20 13:27] LABS: Hemoglobin A1C 5.2 % (<5.7)
== END 2025-06-20 08:49 | disposition home or self-care (01) ==
PROVIDERS: PCP Nurse Practitioner Family; Visit Provider Nurse Practitioner Family
DX: R73.01 Impaired fasting glucose (principal); E55.9 Vitamin D deficiency, unspecified; I10 Essential (primary) hypertension; E78.5 Hyperlipidemia, unspecified
CPT/HCPCS: 36415; 80053; 80061; 82306; 83036; 84443; 85025